=== PATIENT | male | born 1935 | race Caucasian/White ===

== ENCOUNTER 2016-05-23 10:20 | Inpatient (IN) | payer MEDICARE, OTHER ==
[2016-05-23] VITALS (9 sets, daily range): BP systolic 137–178; BP diastolic 72–86; PULSE 68–82; RESP 14–20; TEMP 97.3–97.7; O2SAT 88–100
[~2016-05-23] VITALS: Ht 177.8 cm; Wt 98.5 kg
[2016-05-23] MEDS: BUDESONIDE-FORMOTEROL 160/4.5 MCG INHALER INH SCH ×2 (03:20→20:29)
[~2016-05-23 10:20] MED LIST: ACET325 PO; ASPI81TA82 PO; ATOR40TA PO; CITA20TA4 PO; COUM4TAB7 PO; COUM6TAB PO; DOCU1CAP39 PO; GLUCTAB OR; METO50TA OR; NITR.4 SL; OMEP20TA OR; SYMB80AE INH; TEMA15 PO; TRAZ50TA4 PO; VITA100020 PO; VITD400 PO
[2016-05-23] MEDS ORDERED: METF500T PO (11:07)
[2016-05-23] MEDS ORDERED: METO50TA PO (11:10)
[2016-05-23] MEDS ORDERED: ATOR40TA16 PO (11:10)
[2016-05-23] MEDS ORDERED: CITA40TA4 PO (11:10)
[2016-05-23] MEDS ORDERED: ASPI81CH CHEW (11:11)
[2016-05-23] MEDS ORDERED: OMEP20TA PO (11:11)
[2016-05-23] MEDS ORDERED: VITA10003 PO (11:12)
[2016-05-23] MEDS ORDERED: VITA10002 PO (11:13)
[2016-05-23] MEDS ORDERED: SYMB160A INH ×2 (11:14→11:18)
[2016-05-23] MEDS ORDERED: TRAM50TA PO (11:15)
[2016-05-23] MEDS ORDERED: DULC100C PO (11:15)
[2016-05-23] MEDS ORDERED: FURO20TA PO (11:16)
--- NOTE | 2016-05-23 11:16 | PD ---
HPI Chief Complaint: Chest Pain Time Seen by Provider: 11:00 Travel History International Travel<30 days: No Contact w/Intl Traveler<30days: No Traveled to known affect area: No History of Present Illness HPI 80-year-old male complains of chest pain. Patient states that the pain started this morning after he ate breakfast. Patient states the pain is aching pain localized to the right chest. Patient denies any pain radiation. Patient states the pain is worse with deep breathing and movement. Patient has history of COPD and has a chronic cough and this was not new. Patient denies any fever chills. Patient denies any shortness of breath. Patient has history of atrial fibrillation, CAD status post CABG and stent placement. Patient has history hypertension, diabetes, dyslipidemia. Patient is a nonsmoker. Patient was on Coumadin in the past however Coumadin was stopped secondary to intracranial hemorrhage. Patient on aspirin 81 mg daily now. Patient states that the right-sided chest pain was persistent for 2 hours and became intermittent now. On a scale of 1-10 the pain is a 4. I spoke with Dr. 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 PFSH Past Medical History Arthritis: Yes Blood Disorders: No Cancer: Yes (prostate) Cardiac Catheterization: Yes Cardiovascular Problems: Yes High Cholesterol: Yes COPD: Yes Coronary Artery Disease: Yes Diabetes: Yes (II) Patient Takes Glucophage: No Diminished Hearing: No Endocrine: No Gastrointestinal Disorders: Yes GERD: Yes Genitourinary: No Hiatal Hernia: Yes Herniated Disk: Yes (degenerative disc disease lower back) Hypertension: Yes Immune Disorder: No Musculoskeletal: Yes Neurologic: Yes Psychiatric: No Reproductive: No Respiratory: Yes (COPD) Myocardial Infarction: Yes Radiation Therapy: Yes (2004 FOR PROSTATE) Tetanus Vaccination: < 5 Years Past Surgical History Abdominal Surgery: Yes (LAPAROSCOPIC APPENDECTOMY) Cardiac Surgery: Yes (angioplasty) Coronary Artery Bypass Graft: Yes Oral Surgery: Yes (TONSILS) Social History Alcohol Use: No Tobacco Use: No Substance Use: No Allergies-Medications (Allergen,Severity, Reaction): Coded Allergies: No Known Allergies (Verified , 03/05/14) Reported Meds & Prescriptions Reported Meds & Active Scripts Active Reported Albuterol Neb (Albuterol Sulfate) 2.5 Mg/3 Ml Neb 2.5 Mg NEB Q4HR NEB PRN Furosemide 20 Mg Tab 20 Mg PO BID Dulcolax Stool Softener (Docusate Sodium) 100 Mg Cap 100 Mg PO BID Tramadol (Tramadol HCl) 50 Mg Tab 50 Mg PO Q4H PRN Symbicort Inh (Budesonide/Formoterol Fumarate) 160-4.5 Mcg/Act Aero 1 Puff INH Q12HR Vitamin B-12 (Cyanocobalamin) 1,000 Mcg Tab 1,000 Mcg PO DAILY Vitamin D-3 (Cholecalciferol) 1,000 Unit Tab 1,000 Units PO DAILY Omeprazole 20 Mg Tab 20 Mg PO DAILY Aspirin 81 Mg Chew 81 Mg CHEW DAILY Atorvastatin (Atorvastatin Calcium) 40 Mg Tab 40 Mg PO HS Citalopram (Citalopram Hydrobromide) 40 Mg Tab 40 Mg PO DAILY Metoprolol Tartrate 50 Mg Tab 50 Mg PO BID Metformin (Metformin HCl) 500 Mg Tab 500 Mg PO BIDPC With meals Review of Systems General / Constitutional: No: Fever Eyes: No: Visual changes HENT: No: Headaches Cardiovascular: Positive: Chest Pain or Discomfort Respiratory: No: Shortness of Breath Gastrointestinal: No: Abdominal Pain Genitourinary: No: Dysuria Musculoskeletal: No: Pain Skin: No Rash Neurologic: No: Weakness Psychiatric: No: Depression Endocrine: No: Polydipsia Hematologic/Lymphatic: No: Easy Bruising Physical Exam Narrative GENERAL: Well-nourished, well-developed patient. SKIN: Focused skin assessment warm/dry. HEAD: Normocephalic. EYES: No scleral icterus. No injection or drainage. NECK: Supple, trachea midline. No JVD or lymphadenopathy. CARDIOVASCULAR: Regular rate and rhythm without murmurs, gallops, or rubs. RESPIRATORY: Breath sounds equal bilaterally. No accessory muscle use. GASTROINTESTINAL: Abdomen soft, non-tender, nondistended. MUSCULOSKELETAL: No cyanosis, or edema. BACK: Nontender without obvious deformity. No CVA tenderness. Neurologic exam normal. Data Data Last Documented VS Vital Signs Date Time Temp Pulse Resp B/P Pulse Ox O2 Delivery O2 Flow Rate FiO2 05/23/16 13:28 68 14 163/86 96 Nasal Cannula 2 Orders Electrocardiogram (05/23/16 11:09) Complete Blood Count With Diff (05/23/16 11:09) Comprehensive Metabolic Panel (05/23/16 11:09) Creatine Kinase (Cpk) (05/23/16 11:09) Troponin I (05/23/16 11:09) B-Type Natriuretic Peptide (05/23/16 11:09) Prothrombin Time / Inr (Pt) (05/23/16 11:09) Act Partial Throm Time (Ptt) (05/23/16 11:09) Chest, Single Ap (05/23/16 11:09) Iv Access Insert/Monitor (05/23/16 11:09) Ecg Monitoring (05/23/16 11:09) Oximetry (05/23/16 11:09) Ct Pulmonary Angiogram (05/23/16 11:11) Iohexol 350 Inj (Omnipaque 350 Inj) (05/23/16 13:24) Admit To Inpatient (05/23/16 ) Vital Signs (Adult) Q4H (05/23/16 14:59) Activity Oob With Assistance (05/23/16 14:59) Hydraulic Billet Maker / Telemetry .CONTINUOUS (05/23/16 14:59) Diet Heart Healthy (05/23/16 Dinner) Sodium Chloride 0.9% Flush (Ns Flush) (05/23/16 15:00) Sodium Chloride 0.9% Flush (Ns Flush) (05/23/16 21:00) Acetaminophen (Tylenol) (05/23/16 15:00) Ondansetron Inj (Zofran Inj) (05/23/16 15:00) Magnesium Hydroxide Liq (Milk Of Magnesi (05/23/16 15:00) Basic Metabolic Panel (Bmp) (05/24/16 06:00) Complete Blood Count With Diff (05/24/16 06:00) Troponin I (05/23/16 14:59) Labs Laboratory Tests Test 05/23/16 11:00 White Blood Count 9.0 TH/MM3 Red Blood Count 4.22 MIL/MM3 Hemoglobin 13.4 GM/DL Hematocrit 38.5 % Mean Corpuscular Volume 91.4 FL Mean Corpuscular Hemoglobin 31.7 PG Mean Corpuscular Hemoglobin 34.7 % Concent Red Cell Distribution Width 15.5 % Platelet Count 124 TH/MM3 Mean Platelet Volume 9.3 FL Neutrophils (%) (Auto) 77.6 % Lymphocytes (%) (Auto) 11.2 % Monocytes (%) (Auto) 5.9 % Eosinophils (%) (Auto) 4.8 % Basophils (%) (Auto) 0.5 % Neutrophils # (Auto) 7.0 TH/MM3 Lymphocytes # (Auto) 1.0 TH/MM3 Monocytes # (Auto) 0.5 TH/MM3 Eosinophils # (Auto) 0.4 TH/MM3 Basophils # (Auto) 0.0 TH/MM3 CBC Comment DIFF FINAL Differential Comment Prothrombin Time 11.4 SEC Prothromb Time International 1.0 RATIO Ratio Activated Partial 26.1 SEC Thromboplast Time Sodium Level 140 MEQ/L Potassium Level 4.3 MEQ/L Chloride Level 105 MEQ/L Carbon Dioxide Level 29.1 MEQ/L Anion Gap 6 MEQ/L Blood Urea Nitrogen 23 MG/DL Creatinine 1.60 MG/DL Estimat Glomerular Filtration 42 ML/MIN Rate Random Glucose 211 MG/DL Calcium Level 8.6 MG/DL Total Bilirubin 0.3 MG/DL Aspartate Amino Transf 17 U/L (AST/SGOT) Alanine Aminotransferase 20 U/L (ALT/SGPT) Alkaline Phosphatase 56 U/L Total Creatine Kinase 74 U/L Troponin I LESS THAN 0.02 NG/ML B-Type Natriuretic Peptide 56 PG/ML Total Protein 6.6 GM/DL Albumin 3.1 GM/DL MDM Medical Decision Making Medical Screen Exam Complete: Yes Emergency Medical Condition: Yes Interpretation(s) 1300 p.m. Last Impressions Chest X-Ray 05/23/16 1109 Signed Impressions: Service Date/Time: Monday, May 23, 2016 11:13 - CONCLUSION: No acute disease. Gil Kaur MD 1301 p.m. CBC within normal limit. Platelet 124. BUN 23. Creatinine 1.60. Cardiac enzymes are normal. BNP 56. 1345 PM. Last Impressions Chest X-Ray 05/23/16 1109 Signed Impressions: Service Date/Time: Monday, May 23, 2016 11:13 - CONCLUSION: No acute disease. Gil Kaur MD Differential Diagnosis Differential diagnosis including musculoskeletal, angina, OK, PE, pneumothorax. Narrative Course 80-year-old male with right-sided chest pain. History of CAD status post CABG. History of COPD and atrial fibrillation. Patient will be admitted to medical service with consultation to neurosurgeon and hematology oncologist regarding anticoagulation. Diagnosis Primary Impression: Pulmonary emboli Qualified Code: I26.99 - Other acute pulmonary embolism without acute cor pulmonale Admitting Information Admitting Physician Requests: Admit Ryan Todd MD May 23, 2016 11:16
[2016-05-23] MEDS ORDERED: ALBU0.08 NEB (11:20)
--- NOTE | 2016-05-23 11:27 | RADRPT ---
EXAM DATE/TIME: 05/23/2016 11:13 [facility] COMPARISON: No previous studies available for comparison. INDICATIONS : Chest pain and short of breath. MEDICAL HISTORY : Chronic obstructive pulmonary disease. SURGICAL HISTORY : CABG. ENCOUNTER: Initial ACUITY: 1 day PAIN SCORE: 7/10 LOCATION: Right chest FINDINGS: Cardiomegaly and median sternotomy wires are noted. No consolidation or effusion. EKG leads overlie t he chest. CONCLUSION: No acute disease. Gil Kaur MD on May 23, 2016 at 11:25 Board Certified Radiologist. This report was verified electronically.
[2016-05-23 11:35] LABS: BASOPHIL % 0.5 % (0.0-2.0); EOSINOPHIL # 0.4 TH/MM3 (0-0.4); EOSINOPHIL % 4.8 % (0.0-4.0); HEMATOCRIT 38.5 % (39.0-51.0); HEMO FLAGS DIFF FINAL; LYMPH % 11.2 % (9.0-44.0); MEAN CELL VOLUME 91.4 FL (80.0-100.0); MEAN CORPUSCULAR HEMOGLOBIN 31.7 PG (27.0-34.0); MEAN CORPUSCULAR HGB CONC 34.7 % (32.0-36.0); MONO % 5.9 % (0.0-8.0); NEUT % 77.6 % (16.0-70.0); PLATELET COUNT 124 TH/MM3 (150-450); RED BLOOD COUNT 4.22 MIL/MM3 (4.50-5.90); RED CELL DISTRIBUTION WIDTH 15.5 % (11.6-17.2)
[2016-05-23 11:42] LABS: APTT (PATIENT) 26.1 SEC (24.3-30.1); PROTHROMBIN TIME - PATIENT 11.4 SEC (9.8-11.6)
[2016-05-23 12:06] LABS: ALKALINE PHOSPHATASE 56 U/L (45-117); ALT (GPT) 20 U/L (12-78); ANION GAP 6 MEQ/L (5-15); AST (GOT) 17 U/L (15-37); BICARBONATE 29.1 MEQ/L (21.0-32.0); BLOOD UREA NITROGEN 23 MG/DL (7-18); CHLORIDE 105 MEQ/L (98-107); GLOMERULAR FILTRATION RATE 42 ML/MIN (>89); POTASSIUM 4.3 MEQ/L (3.5-5.1); SODIUM (NA) 140 MEQ/L (136-145); TOTAL BILIRUBIN ADULT 0.3 MG/DL (0.2-1.0)
[2016-05-23 12:07] LABS: CREATINE KINASE 74 U/L (39-308)
[2016-05-23] MEDS ORDERED: IOHEXOL 350 MG/ML 10 ML VIAL (for RAD DIAG) IV ONE (13:24)
--- NOTE | 2016-05-23 13:41 | RADRPT ---
EXAM DATE/TIME: 05/23/2016 13:04 [facility] COMPARISON: CHEST SINGLE AP, May 23, 2016, 11:13. INDICATIONS : Right chest pain. IV CONTRAST: 55 cc Omnipaque 350 (iohexol) IV RADIATION DOSE: 21.59 CTDIvol (mGy) MEDICAL HISTORY : Cardiovascular disease. Diabetes mellitus type 2. Carcinoma, prostate.Hypertension. SURGICAL HISTORY : Appendectomy. CABG ENCOUNTER: Initial ACUITY: 1 day PAIN SCALE: 7/10 LOCATION: Right chest TECHNIQUE: Volumetric scanning of the chest was performed using a pulmonary embolism protocol MIP images were re constructed. Using automated exposure control and adjustment of the mA and/or kV according to patien t size, radiation dose was kept as low as reasonably achievable to obtain optimal diagnostic quality images. FINDINGS: There are dependent atelectatic changes, mild subpleural interstitial prominence bilaterally and mild patchy basilar airspace disease left greater than right. There are filling defects within the left u pper lobe pulmonary artery, right lower lobe pulmonary arteries, right main right artery and upper lo be branches. CONCLUSION: 1. Bilateral pulmonary emboli are noted. 2. Atelectasis, interstitial lung disease and patchy airspace disease at the bases. 3. Mild dilatation of the ascending aorta up to 4.2 cm. Gil Kaur MD on May 23, 2016 at 13:38 Board Certified Radiologist. This report was verified electronically.
[2016-05-23] MEDS ORDERED: ACETAMINOPHEN 325 MG TAB PO PRN ×2 (15:00→16:30)
[2016-05-23] MEDS ORDERED: NALOXONE HCL 0.4 MG/ML AMP IV PRN ×2 (15:00→16:30)
[2016-05-23] MEDS ORDERED: ONDANSETRON HCL 4 MG/2 ML VIAL IVP PRN (15:00)
[2016-05-23] MEDS ORDERED: SODIUM CHLORIDE 0.9% FLUSH 10 ML FLUSH IV FLUSH PRN ×2 (15:00→16:30)
[2016-05-23] MEDS ORDERED: MAGNESIUM HYDROXIDE SUSP 30 ML CUP PO PRN (15:00)
--- NOTE | 2016-05-23 15:56 | RADRPT ---
EXAM DATE/TIME: 05/23/2016 15:33 [facility] COMPARISON: No previous studies available for comparison. INDICATIONS : Evaluate for hemorrhage. RADIATION DOSE: 35.65 CTDIvol (mGy) MEDICAL HISTORY : Cardiovascular disease. Carcinoma, prostate. Hypertension. SURGICAL HISTORY : CABG ENCOUNTER: Initial ACUITY: 1 day PAIN SCALE: 0/10 LOCATION: Bilateral head TECHNIQUE: Multiple contiguous axial images were obtained of the head. Using automated exposure control and adj ustment of the mA and/or kV according to patient size, radiation dose was kept as low as reasonably a chievable to obtain optimal diagnostic quality images. FINDINGS: There is diffuse atrophy greatest in the bilateral frontal regions. Remote basal ganglia infarcts are identified. No signs of acute infarct or mass. There is a subtle mildly hyperdense subdural hemorrha ge along the left parietal and frontal convexity with a maximal transverse width of 8 mm. No underlyi ng mass effect is seen. No fractures are seen. CONCLUSION: 1. Small left subdural hemorrhage. 2. Atrophy and remote lacunar infarcts. Gil Kaur MD on May 23, 2016 at 15:53 Board Certified Radiologist. This report was verified electronically.
[2016-05-23] MEDS ORDERED: MORPHINE SULFATE 4 MG/ML INJ IV PUSH ONE (16:15)
[2016-05-23] MEDS ORDERED: SODIUM CHLOR 0.9% 1000 ML INJ 1,000 ML IV SCH (16:20)
[2016-05-23] MEDS ORDERED: ACETAMINOPHEN/HYDROcodone 325 MG/5 MG TAB PO PRN (16:30)
[2016-05-23] MEDS ORDERED: GLUCAGON 1 MG/ML VIAL OTHER PRN (16:30)
[2016-05-23] MEDS ORDERED: RESP: ALBUTEROL 2.5 MG/3 ML NEB (PRN) NEB (16:30)
[2016-05-23] MEDS ORDERED: MORPHINE SULFATE 4 MG/ML INJ IV PRN (16:30)
[2016-05-23] MEDS ORDERED: DEXTROSE 50% IN WATER 50 ML VIAL(D50) IV PUSH PRN (16:30)
[2016-05-23] MEDS: ACETAMINOPHEN/HYDROcodone 325 MG/7.5 MG TAB PO PRN ×2 (16:45→20:35)
--- NOTE | 2016-05-23 16:54 | HHI.HP ---
HPI [facility] Primary Care Physician Alexis Verma MD Admission Diagnosis bilateral pulmonary emboli Diagnoses: Chief Complaint: Chest pain Travel History International Travel<30 Days: No Contact w/Intl Traveler <30 Da: No Traveled to Known Affected Are: No History of Present Illness Mr. Lamar is an 80-year-old male with a known history of CAD with history of CABG with triple bypass, atrial fibrillation, COPD, DM, HTN, hypercholesteremia , prostate cancer with radiation, GERD, degenerative disc disease and arthritis. Patient presented to the ED with complaints of severe nonradiating sharp anterior right chest pain that began at 0900 this am, associated with perspiration, shortness of breath and worse with breathing. Denies any associated symptoms of nausea or vomiting. Per patient report, he has fallen multiple times with history of hemorrhagic bleed in March or April of this year after a fall. He was on Coumadin at that time but was taken off. Denies any recent fever or chills. Denies any recent surgeries. He did fly from [place] two weeks ago, otherwise denies any recent travel. Review of Systems Constitutional: COMPLAINS OF: Diaphoretic episodes Cardiovascular: COMPLAINS OF: Chest pain, Dyspnea on Exertion, Lower Extremity Edema Except as stated in HPI: all other systems reviewed are Neg Past Family Social History Past Medical History CAD with history of CABG with triple bypass Atrial fibrillation COPD DM HTN Hypercholesteremia Prostate cancer with radiation GERD Degenerative disc disease Arthritis. Past Surgical History CABG with triple bypass Appendectomy Tonsillectomy Reported Medications Reported Meds & Active Scripts Albuterol Neb (Albuterol Sulfate) 2.5 Mg/3 Ml Neb 2.5 Mg NEB Q4HR NEB PRN Furosemide 20 Mg Tab 20 Mg PO BID Dulcolax Stool Softener (Docusate Sodium) 100 Mg Cap 100 Mg PO BID Tramadol (Tramadol HCl) 50 Mg Tab 50 Mg PO Q4H PRN Symbicort Inh (Budesonide/Formoterol Fumarate) 160-4.5 Mcg/Act Aero 1 Puff INH Q12HR Vitamin B-12 (Cyanocobalamin) 1,000 Mcg Tab 1,000 Mcg PO DAILY Vitamin D-3 (Cholecalciferol) 1,000 Unit Tab 1,000 Units PO DAILY Omeprazole 20 Mg Tab 20 Mg PO DAILY Aspirin 81 Mg Chew 81 Mg CHEW DAILY Atorvastatin (Atorvastatin Calcium) 40 Mg Tab 40 Mg PO HS Citalopram (Citalopram Hydrobromide) 40 Mg Tab 40 Mg PO DAILY Metoprolol Tartrate 50 Mg Tab 50 Mg PO BID Metformin (Metformin HCl) 500 Mg Tab 500 Mg PO BIDPC With meals Allergies: Coded Allergies: No Known Allergies (Verified , 03/05/14) Active Ordered Medications Current Medications Medications (Trade) Dose Ordered Sig/Uriel Route Start Time Stop Time Status Last Admin (NS Flush) 2 ml UNSCH PRN IV FLUSH 05/23/16 15:00 (NS Flush) 2 ml BID IV FLUSH 05/23/16 21:00 (Tylenol) 650 mg Q4H PRN PO 05/23/16 15:00 (Zofran Inj) 4 mg Q6H PRN IVP 05/23/16 15:00 (Milk Of Magnesia Liq) 30 ml Q12H PRN PO 05/23/16 15:00 (Narcan Inj) 0.4 mg UNSCH PRN IV 05/23/16 15:00 (D50w (Vial) Inj) 25 ml UNSCH PRN IV PUSH 05/23/16 16:30 (Glucagon Inj) 1 mg UNSCH PRN OTHER 05/23/16 16:30 (Lipitor) 40 mg HS PO 05/23/16 21:00 (Symbicort 160-4.5 Inh) 1 puff Q12HR INH 05/23/16 21:00 (CeleXA) 40 mg DAILY PO 05/24/16 09:00 (Colace) 100 mg BID PO 05/23/16 21:00 (Lopressor) 50 mg BID PO 05/23/16 21:00 (Protonix) 20 mg DAILY PO 05/24/16 09:00 Family History Denies any family history of dementia. Reports an aunt who had cancer. Social History Denies any alcohol or tobacco use. Recently at SNF for rehab, currently lives at home with . Physical Exam Vital Signs Vital Signs Date Time Temp Pulse Resp B/P Pulse Ox O2 Delivery O2 Flow Rate FiO2 05/23/16 15:59 70 18 164/84 100 Nasal Cannula 2 05/23/16 13:28 68 14 163/86 96 Nasal Cannula 2 05/23/16 12:33 70 18 178/85 98 Nasal Cannula 2 05/23/16 10:27 71 18 98 Nasal Cannula 2 05/23/16 10:22 82 16 137/73 88 Physical Exam GENERAL: Well-developed well-nourished. In mild distress secondary to painful breathing. SKIN: Warm and dry. No lesions noted. HEENT: Normocephalic. Pupils equal and round. Mucous membranes pink and moist. CARDIOVASCULAR: Regular rate and rhythm. No murmur appreciated. RESPIRATORY: No accessory muscle use. Clear to auscultation. Breath sounds equal bilaterally. GASTROINTESTINAL: Abdomen soft, non-tender, nondistended. Bowel sounds x4. MUSCULOSKELETAL: No obvious deformities. No clubbing or cyanosis. No edema. No calf swelling or TTP. NEUROLOGICAL: Awake and alert. No focal neurological deficits. Moves upper and lower extremities spontaneously. Normal speech. PSYCHIATRIC: Appropriate mood and affect; insight and judgment normal. Laboratory Laboratory Tests Test 05/23/16 11:00 White Blood Count 9.0 Red Blood Count 4.22 Hemoglobin 13.4 Hematocrit 38.5 Mean Corpuscular Volume 91.4 Mean Corpuscular Hemoglobin 31.7 Mean Corpuscular Hemoglobin 34.7 Concent Red Cell Distribution Width 15.5 Platelet Count 124 Mean Platelet Volume 9.3 Neutrophils (%) (Auto) 77.6 Lymphocytes (%) (Auto) 11.2 Monocytes (%) (Auto) 5.9 Eosinophils (%) (Auto) 4.8 Basophils (%) (Auto) 0.5 Neutrophils # (Auto) 7.0 Lymphocytes # (Auto) 1.0 Monocytes # (Auto) 0.5 Eosinophils # (Auto) 0.4 Basophils # (Auto) 0.0 CBC Comment DIFF FINAL Differential Comment Prothrombin Time 11.4 Prothromb Time International 1.0 Ratio Activated Partial 26.1 Thromboplast Time Sodium Level 140 Potassium Level 4.3 Chloride Level 105 Carbon Dioxide Level 29.1 Anion Gap 6 Blood Urea Nitrogen 23 Creatinine 1.60 Estimat Glomerular Filtration 42 Rate Random Glucose 211 Calcium Level 8.6 Total Bilirubin 0.3 Aspartate Amino Transf 17 (AST/SGOT) Alanine Aminotransferase 20 (ALT/SGPT) Alkaline Phosphatase 56 Total Creatine Kinase 74 Troponin I LESS THAN 0.02 B-Type Natriuretic Peptide 56 Total Protein 6.6 Albumin 3.1 Result Diagram: 05/23/16 1100 05/23/16 1100 Imaging Last Impressions Head CT 05/23/16 1519 Signed Impressions: Service Date/Time: Monday, May 23, 2016 15:33 - CONCLUSION: 1. Small left subdural hemorrhage. 2. Atrophy and remote lacunar infarcts. Gil Kaur MD CT Angiography 05/23/16 1111 Signed Impressions: Service Date/Time: Monday, May 23, 2016 13:04 - CONCLUSION: 1. Bilateral pulmonary emboli are noted. 2. Atelectasis, interstitial lung disease and patchy airspace disease at the bases. 3. Mild dilatation of the ascending aorta up to 4.2 cm. Gil Kaur MD Chest X-Ray 05/23/16 1109 Signed Impressions: Service Date/Time: Monday, May 23, 2016 11:13 - CONCLUSION: No acute disease. Gil Kaur MD Assessment and Plan Problem List: (1) Pulmonary embolism ICD Code: I26.99 Status: Acute (2) Atrial fibrillation ICD Code: I48.91 Status: Acute (3) History of subdural hematoma ICD Code: Z86.79 Status: Acute (4) DM (diabetes mellitus) ICD Code: E11.9 Status: Acute (5) HTN (hypertension) ICD Code: I10 Status: Acute Assessment and Plan Mr. Lamar is an 80-year-old with a history of CAD with history of CABG with triple bypass, atrial fibrillation, COPD, DM, HTN, hypercholesteremia, prostate cancer with radiation, GERD, degenerative disc disease and arthritis who presents with sharp nonradiating right anterior chest pain. Bilateral PE: CT angiography results reviewed, bilateral pulmonary emboli are noted. Atelectasis, interstitial lung disease and patchy airspace disease at the bases. Mild dilation of the ascending aorta up to 4.2cm. Hematology consulted, appreciate input regarding anticoagulation with associated subdural hemorrhage. Consider IVCF. IV morphine x 1. Pain control with oral [place] as needed, with IV Morphine for breakthrough. - SDH occurred in January 2016. - Based on literature review (uptodate), restarting anti-coagulation 7 to 14 days after ICH appears to be reasonable. - Newer agents (Dabigatran, Rivaroxaban, apixaban) would be preferable due to lower risk of ICH. - Discussed with neurosurgery and hematology, appreciate input. Specialists ok with cautious anticoagulation. - IR consult for IVC filter placement. - Will start heparin drip without bolus. - If okay with hematology, will consider transitioning to Apixaban (no bridging required) or Dabigatran Subdural hemorrhage: CT head results reviewed, small left subdural hemorrhage noted. Atrophy and remote lacunar infarcts. Neurosurgery consulted. I also reviewed reports of previous CT head done at [place], [place]. CT head reports from February 2016 indicates stable SDH. Although we cannot compare images, CT head done on 05/23/2016 likely indicates residual old SDH and not a new SDH. Hypertension - start Amlodipine 5mg Qday. Good control of BP would be extremely important in this patient given his history of SDH. CAD: With chest pain above, likely related to PE. Rule out ACS per protocol, trend cardiac enzymes. Continue metoprolol and statin. Atrial fibrillation - [id number] score likely greater than 4 (age, HTN, DM). HAS-BLED score is 2. - This would be another indication to start anti-coagulation and benefit outweigh the risk of anticoagulation. PEDRITO: Creatinine 1.60, prev 1.17 on 03/05/14. Appears euvolemic. Hold home Lasix. IVF x 1L. Follow up BMP. DM: Start on NovoLog sliding scale. Hold metformin for now. Monitor Accu-Cheks. Other chronic medical issues include GERD, COPD, depression: Stable at this time and will continue home medications as indicated. Full code. Heparin gtt. Written by Aaron Louis, acting as scribe for Dr. Velazquez on 05/23/16 at 16:38. All or portions of this note were transcribed by CIERA Randolph. I, Dr. Johnathan Velazquez personally performed the history, physical exam, and medical decision making; and confirmed the accuracy of the information in the transcribed note. Authenticated by Dr. Johnathan Velazquez on 05/23/16 at 23:17. Discussed Condition With Patient Aaron Louis May 23, 2016 16:54 Quincy Velazquez DO May 23, 2016 23:26
[2016-05-23] MEDS: HEPARIN-D5W INJ 250 ML IV SCH (18:22)
[2016-05-23 18:46] LABS: HEMATOCRIT 41.6 % (39.0-51.0); MEAN CELL VOLUME 92.8 FL (80.0-100.0); MEAN CORPUSCULAR HEMOGLOBIN 30.5 PG (27.0-34.0); MEAN CORPUSCULAR HGB CONC 32.9 % (32.0-36.0); PLATELET COUNT 130 TH/MM3 (150-450); RED BLOOD COUNT 4.49 MIL/MM3 (4.50-5.90); RED CELL DISTRIBUTION WIDTH 15.5 % (11.6-17.2); REVIEW FLAG FINAL; WHITE BLOOD COUNT 10.1 TH/MM3 (4.0-11.0)
[2016-05-23 18:57] LABS: APTT (PATIENT) 25.9 SEC (24.3-30.1); PROTHROMBIN TIME - PATIENT 11.4 SEC (9.8-11.6)
[2016-05-23] MEDS: DOCUSATE SODIUM 100 MG CAP PO SCH (20:29)
[2016-05-23] MEDS: ATORVASTATIN 40 MG TAB PO SCH (20:29)
[2016-05-23] MEDS: METOPROLOL TARTRATE 50 MG TAB PO SCH (20:29)
[2016-05-23] MEDS: SODIUM CHLORIDE 0.9% FLUSH 10 ML FLUSH IV FLUSH SCH (20:30)
[2016-05-23] MEDS: INSULIN ASPART SUPPLEMENTAL SCALE SQ SCH (20:42)
[2016-05-23] MEDS ORDERED: SODIUM CHLORIDE 0.9% FLUSH 10 ML FLUSH IV FLUSH SCH (21:00)
--- NOTE | 2016-05-23 23:06 | RADRPT ---
EXAM DATE/TIME: 05/23/2016 22:05 [facility] COMPARISON: No previous studies available for comparison. INDICATIONS : Bilateral leg pain. Pulmonary emboli MEDICAL HISTORY : Myocardial infarction. Hypercholesterolemia. Gastroesophageal reflux disease. CAD. Hiatal hernia. Art hritis. Prostate cancer. Degenerative disk disease. Radiation therapy. SURGICAL HISTORY : CABGAppendectomy. Oral surgery. ENCOUNTER: Initial ACUITY: 1 day PAIN SCORE: 3/10 LOCATION: Bilateral legs. TECHNIQUE: Venous ultrasound of the left and right leg was performed from the inguinal ligament to the proximal calf. Real-time, color Doppler and spectral tracing, compression and augmentation techniques were us ed. FINDINGS: RIGHT LEG: There is normal compressibility of the deep venous system from the inguinal region to the proximal ca lf. No echogenic clot is seen in the lumen of the common femoral, femoral, popliteal, and posterior tibial veins. There is a normal response of the venous system to proximal and distal augmentation an d respiration. LEFT LEG: There is normal compressibility of the deep venous system from the inguinal region to the proximal ca lf. No echogenic clot is seen in the lumen of the common femoral, femoral, popliteal, and posterior tibial veins. There is a normal response of the venous system to proximal and distal augmentation an d respiration. CONCLUSION: No DVT in either lower extremity. John Wagner MD on May 23, 2016 at 23:03 Board Certified Radiologist. This report was verified electronically.
--- NOTE | 2016-05-23 23:49 | MB ---
cc: ALESSANDRA GUERIN M.D. DATE OF CONSULTATION 05/23/16 REASON FOR CONSULTATION Consult requested by [facility] for evaluation of a pulmonary embolism in a patient who has a history of subdural hematoma in January of 2016. HISTORY OF PRESENT ILLNESS This 80-year-old very pleasant white male. He is under the care of Dr. Verma, his primary physician, Dr. Duarte, his neurologist and Dr. Diaz, his fixing carpenter. He has multiple medical problems. He went to [place] to attend a family gathering. On the 30 of December the patient's stated that he fell over there. At that time he did not have any evidence of injuries or change in mental status. Maybe a month later he was admitted to [facility] for change in mental status. The patient had further workup and he was found to have subdural hematoma. However, his mental status improved and conservative management was recommended. He was evaluated by neurosurgeon and according to the they did not recommended any surgery. At that time the patient was on Coumadin for atrial fibrillation. The Coumadin was reversed and discontinued, he was discharged on aspirin. The patient went to rehab in [place] and he stayed there for two and a half months. He finally improved to the point that he could travel back to [place] about 2 weeks ago. The patient came into the emergency room after he was complaining of pleuritic chest pain and shortness of breath. In the emergency room he was evaluated by Dr. Todd. A CT angiogram was ordered which showed bilateral pulmonary embolism. The patient is admitted to the [facility] service. Neurosurgery, Dr. Angela, was consulted. He recommended to obtain a CT of the head which shows small left subdural hemorrhage. There was atrophy and remote lacunar infarcts noted. Dr. Angela recommended it is okay to start him on anticoagulation with a close monitoring. The patient was started on heparin. I have been asked to see the patient for further evaluation. REVIEW OF SYSTEMS The patient's breathing has somewhat improve according to his . He still has pleuritic chest pains, especially on the left side. He denies any nausea or vomiting. His appetite is okay. He does not have any swelling in both lower legs. The rest of the review of systems is negative. PAST MEDICAL HISTORY Hypertension, hypercholesterolemia, diabetes, COPD, multiple TIAs, chronic atrial fibrillation, coronary artery disease status post MT, history of prostate cancer status post radiation therapy. PAST SURGICAL HISTORY The past surgical history of coronary artery bypass surgery, cardiac stent placement, appendectomy, prostate biopsy and back surgery. ALLERGIES None. MEDICATIONS Please see EMR. FAMILY HISTORY There is no family history of thromboembolic disease. SOCIAL HISTORY The patient does not smoke cigarettes, does not drink alcohol. PHYSICAL EXAMINATION GENERAL: This is a well-developed elderly white male in no apparent distress. VITAL SIGNS: Temperature 97.7, heart rate is 70, blood pressure 166/78. HEENT: PERRLA, EOMI, anicteric. No oral lesions are noted. Neck is supple. LYMPH NODE SURVEY: There is no cervical, supraclavicular or axillary lymphadenopathy noted. LUNGS: Lungs are clear. No wheezing, rhonchi or rales. HEART: Heart is irregularly irregular. ABDOMEN: Abdomen is soft, nontender. No hepatosplenomegaly. EXTREMITIES: No pedal edema. NEUROLOGY: Awake, alert, oriented times three. SKIN: No significant lesions noted. ASSESSMENT 1. Bilateral pulmonary embolism. 2. History of subdural hematoma in January of 2016 status post fall. 3. Chronic atrial fibrillation, was on Coumadin but he is now only on aspirin. PLAN I have reviewed his available records and I have discussed with the patient and his regarding the bilateral pulmonary embolism. It is unclear whether this is provoked or unprovoked pulmonary embolism. [facility] and was recently discharged about 2 weeks ago. He traveled from [place] to [place]. According to his he was ambulatory at home. Due to the extensive nature of the pulmonary embolism the patient needed to be on anticoagulant. CT of the brain showed small left subdural hemorrhage. Dr. Angela was consulted and he has no objection to the anticoagulation with close monitoring. Dr. Velazquez from [facility] had called me and discussed the case and I agree with starting him on heparin without the bolus dose. Interventional radiologist have been consulted for IVC filter to be placed tomorrow. I will get the Doppler ultrasound of both lower legs to make sure that he does not have DVT of lower legs. The patient will be monitored closely for any worsening of the subdural hematoma with the anticoagulation. Further recommendations based on his hospital stay. Thank you for asking my opinion. MD SHEREE Haney/KHUSHBU /8:18 PM /11:32 PM [facility] HOSPITALDarrion
[2016-05-24] VITALS (9 sets, daily range): BP systolic 147–167; BP diastolic 71–87; PULSE 68–85; RESP 18–20; TEMP 97–98.2; O2SAT 91–97
[2016-05-24 00:35] LABS: APTT (PATIENT) 69.9 SEC (24.3-30.1)
[2016-05-24] MEDS: ACETAMINOPHEN/HYDROcodone 325 MG/7.5 MG TAB PO PRN (03:38)
[2016-05-24] MEDS: INSULIN ASPART SUPPLEMENTAL SCALE SQ SCH ×4 (05:19→21:16)
[2016-05-24 08:52] LABS: BICARBONATE 29.3 MEQ/L (21.0-32.0)
[2016-05-24] MEDS ORDERED: amLODIPine BESYLATE 5 MG TAB PO SCH (09:00)
--- NOTE | 2016-05-24 09:08 | PD.CONS ---
HPI Consult Requested By Primary Care Physician Alexis Verma MD History of Present Illness Mr. Lamar is an 80-year-old male with a known history of CAD with history of CABG with triple bypass, atrial fibrillation, COPD, DM, HTN, hypercholesteremia , prostate cancer with radiation, GERD, degenerative disc disease and arthritis. Patient presented to the ED with complaints of severe nonradiating sharp anterior right chest pain that began at 0900 this am, associated with perspiration, shortness of breath and worse with breathing. Denies any associated symptoms of nausea or vomiting. Per patient report, he has fallen multiple times with history of hemorrhagic bleed in March or April of this year after a fall. He was on Coumadin at that time but was taken off. Denies any recent fever or chills. Denies any recent surgeries. He did fly from [place] two weeks ago, otherwise denies any recent travel. Past Family Social History Allergies: Coded Allergies: No Known Allergies (Verified , 03/05/14) Past Medical History CAD with history of CABG with triple bypass Atrial fibrillation COPD DM HTN Hypercholesteremia Prostate cancer with radiation GERD Degenerative disc disease Arthritis. Past Surgical History CABG with triple bypass Appendectomy Tonsillectomy Reported Medications Albuterol Neb (Albuterol Sulfate) 2.5 Mg/3 Ml Neb 2.5 Mg NEB Q4HR NEB PRN Furosemide 20 Mg Tab 20 Mg PO BID Dulcolax Stool Softener (Docusate Sodium) 100 Mg Cap 100 Mg PO BID Tramadol (Tramadol HCl) 50 Mg Tab 50 Mg PO Q4H PRN Symbicort Inh (Budesonide/Formoterol Fumarate) 160-4.5 Mcg/Act Aero 1 Puff INH Q12HR Vitamin B-12 (Cyanocobalamin) 1,000 Mcg Tab 1,000 Mcg PO DAILY Vitamin D-3 (Cholecalciferol) 1,000 Unit Tab 1,000 Units PO DAILY Omeprazole 20 Mg Tab 20 Mg PO DAILY Aspirin 81 Mg Chew 81 Mg CHEW DAILY Atorvastatin (Atorvastatin Calcium) 40 Mg Tab 40 Mg PO HS Citalopram (Citalopram Hydrobromide) 40 Mg Tab 40 Mg PO DAILY Metoprolol Tartrate 50 Mg Tab 50 Mg PO BID Metformin (Metformin HCl) 500 Mg Tab 500 Mg PO BIDPC With meals Active Ordered Medications Last Impressions Head CT 05/23/16 1519 Signed Impressions: Service Date/Time: Monday, May 23, 2016 15:33 - CONCLUSION: 1. Small left subdural hemorrhage. 2. Atrophy and remote lacunar infarcts. Gil Kaur MD CT Angiography 05/23/16 1111 Signed Impressions: Service Date/Time: Monday, May 23, 2016 13:04 - CONCLUSION: 1. Bilateral pulmonary emboli are noted. 2. Atelectasis, interstitial lung disease and patchy airspace disease at the bases. 3. Mild dilatation of the ascending aorta up to 4.2 cm. Gil Kaur MD Chest X-Ray 05/23/16 1109 Signed Impressions: Service Date/Time: Monday, May 23, 2016 11:13 - CONCLUSION: No acute disease. Gil Kaur MD Lower Extremity Ultrasound 05/23/16 0000 Signed Impressions: Service Date/Time: Monday, May 23, 2016 22:05 - CONCLUSION: No DVT in either lower extremity. John Wagner MD Family History Denies any family history of dementia. Social History Denies any alcohol or tobacco use. No alcohol abuse No illicit drug use Currently lives at home with . Physical Exam Vital Signs Vital Signs Date Time Temp Pulse Resp B/P Pulse Ox O2 Delivery O2 Flow Rate FiO2 05/24/16 08:00 97.7 68 18 147/87 97 05/24/16 05:20 94 Nasal Cannula 3.00 05/24/16 03:34 98.2 71 18 165/79 93 05/23/16 23:37 160/78 Automatic Cuff 05/23/16 23:14 97.4 75 18 164/83 93 05/23/16 20:18 73 05/23/16 20:08 97.3 76 18 147/72 97 05/23/16 17:00 97.7 70 20 166/78 97 05/23/16 15:59 70 18 164/84 100 Nasal Cannula 2 05/23/16 13:28 68 14 163/86 96 Nasal Cannula 2 05/23/16 12:33 70 18 178/85 98 Nasal Cannula 2 05/23/16 10:27 71 18 98 Nasal Cannula 2 05/23/16 10:22 82 16 137/73 88 Physical Exam Mr Lamar is alert, awake and oriented to time, place and person. Speech is fluent. Higher cognitive functions are normal. Cranial nerve examination demonstrates the pupils to be equal, round, and reactive to light. Extra-ocular movements are intact. Facial motor and sensory function are normal and symmetrical. Gross hearing is intact, bilaterally. The uvula is midline and elevates symmetrically with the soft palate. Sternocleidomastoid and trapezius muscles have normal and symmetrical strength. Other cranial nerves are intact. Neck is soft and supple. Cervical spine has a good range of motion in anterior flexion, extension, lateral bending, and rotation without pain. There is no tenderness to palpation to the spinous processes or paraspinal muscles. Muscle testing reveals normal bulk and tone overall without rigidity, spasticity , fasciculations, or atrophy. Muscle strength is 5/5 in all muscle groups of both upper extremities including deltoid, biceps, triceps, brachioradialis, wrist extension and day care teacher. In the lower extremities, strength is 5/5 in both iliopsoas, quadriceps, hamstrings, plantar flexion, dorsiflexion, and extensor hallicus longus. Sensory examination is intact to light touch and sharp/dull discrimination in both the upper and lower extremities, symmetrically. Deep tendon reflexes are 2+ and symmetrical in the biceps, triceps, and brachioradialis, bilaterally, in the upper extremities. In the lower extremities , the patellar and Achilles are 2+, bilaterally. There is a bilateral plantar flexion response. Hoffmanns sign is negative. There is no clonus or other abnormal reflexes noted. Cerebellar examination is intact to [id number] test, rapid rhythmic alternating motion. There is no dysmetria, dysdiadochokinesia, truncal ataxia, or tremor. Laboratory Laboratory Tests Test 05/23/16 05/23/16 05/23/16 05/24/16 11:00 15:55 18:26 00:05 White Blood Count 9.0 10.1 Red Blood Count 4.22 4.49 Hemoglobin 13.4 13.7 Hematocrit 38.5 41.6 Mean Corpuscular Volume 91.4 92.8 Mean Corpuscular Hemoglobin 31.7 30.5 Mean Corpuscular Hemoglobin 34.7 32.9 Concent Red Cell Distribution Width 15.5 15.5 Platelet Count 124 130 Mean Platelet Volume 9.3 8.8 Neutrophils (%) (Auto) 77.6 Lymphocytes (%) (Auto) 11.2 Monocytes (%) (Auto) 5.9 Eosinophils (%) (Auto) 4.8 Basophils (%) (Auto) 0.5 Neutrophils # (Auto) 7.0 Lymphocytes # (Auto) 1.0 Monocytes # (Auto) 0.5 Eosinophils # (Auto) 0.4 Basophils # (Auto) 0.0 CBC Comment DIFF FINAL Differential Comment Prothrombin Time 11.4 11.4 Prothromb Time International 1.0 1.0 Ratio Activated Partial 26.1 25.9 69.9 Thromboplast Time Sodium Level 140 Potassium Level 4.3 Chloride Level 105 Carbon Dioxide Level 29.1 Anion Gap 6 Blood Urea Nitrogen 23 Creatinine 1.60 Estimat Glomerular Filtration 42 Rate Random Glucose 211 Calcium Level 8.6 Total Bilirubin 0.3 Aspartate Amino Transf 17 (AST/SGOT) Alanine Aminotransferase 20 (ALT/SGPT) Alkaline Phosphatase 56 Total Creatine Kinase 74 Troponin I LESS THAN 0.02 LESS THAN 0.02 LESS THAN 0.02 B-Type Natriuretic Peptide 56 Total Protein 6.6 Albumin 3.1 Test 05/24/16 07:39 Sodium Level 141 Potassium Level 5.0 Chloride Level 104 Carbon Dioxide Level 29.3 Anion Gap 8 Blood Urea Nitrogen 19 Creatinine 1.26 Estimat Glomerular Filtration 55 Rate Random Glucose 116 Calcium Level 8.1 Result Diagram: 05/23/16 1826 05/24/16 0739 Imaging Last Impressions Head CT 05/23/16 1519 Signed Impressions: Service Date/Time: Monday, May 23, 2016 15:33 - CONCLUSION: 1. Small left subdural hemorrhage. 2. Atrophy and remote lacunar infarcts. Gil Kaur MD CT Angiography 05/23/16 1111 Signed Impressions: Service Date/Time: Monday, May 23, 2016 13:04 - CONCLUSION: 1. Bilateral pulmonary emboli are noted. 2. Atelectasis, interstitial lung disease and patchy airspace disease at the bases. 3. Mild dilatation of the ascending aorta up to 4.2 cm. Gil Kaur MD Chest X-Ray 05/23/16 1109 Signed Impressions: Service Date/Time: Monday, May 23, 2016 11:13 - CONCLUSION: No acute disease. Gil Kaur MD Lower Extremity Ultrasound 05/23/16 0000 Signed Impressions: Service Date/Time: Monday, May 23, 2016 22:05 - CONCLUSION: No DVT in either lower extremity. John Wagner MD Assessment and Plan Assessment and Plan Mr. Lamar is an 80-year-old with a history of CAD with history of CABG with triple bypass, atrial fibrillation, COPD, DM, HTN, hypercholesteremia, prostate cancer with radiation, GERD, degenerative disc disease and arthritis with Bilateral PE on CT angiography Problem List: (1) Pulmonary embolism ICD Code: I26.99 Status: Acute (2) Atrial fibrillation ICD Code: I48.91 Status: Acute (3) History of subdural hematoma ICD Code: Z86.79 Status: Acute (4) DM (diabetes mellitus) ICD Code: E11.9 Status: Acute (5) HTN (hypertension) ICD Code: I10 Status: Acute Attending Statement Subdural hemorrhage: CT head results reviewed, small left chronic subdural hemorrhage. Continue neuro checks in a serial fashion. Placement of ventriculostomy for ICP monitoring is not indicated. Please be very careful and judicious if would start anticoagulation due to the risk for bleeding. ANother alternative is a [place] filter Respiratory. pulmonary toilette, nasotracheal suction, and breathing treatments with nebulizers. Hypertension - start Amlodipine 5mg Qday for good control of BP CAD: chest pain likely related to PE. Rule out ACS per protocol, trend cardiac enzymes. Continue metoprolol Atrial fibrillation [id number] score likely greater than 4 (age, HTN, DM). HAS -BLED score is 2. PEDRITO: Creatinine 1.60, prev 1.17 on 03/05/14. Appears euvolemic. monitor closely urine output, BUN and creatinine PT and OT eval Nutrition. Oral diet Diabetes. Monitor serial Acu checks and SSI for tight control ID monitor for signs of infection Protonix for stress ulcer prophylaxis Michael hose and SCD's for DVT prophylaxis Lui Angela MD May 24, 2016 09:08
[2016-05-24] MEDS: PANTOPRAZOLE SOD 20 MG DELAYED RELEASE TAB PO SCH (09:22)
[2016-05-24] MEDS: DOCUSATE SODIUM 100 MG CAP PO SCH ×2 (09:22→21:06)
[2016-05-24] MEDS: METOPROLOL TARTRATE 50 MG TAB PO SCH ×2 (09:22→21:06)
[2016-05-24] MEDS: BUDESONIDE-FORMOTEROL 160/4.5 MCG INHALER INH SCH ×2 (09:22→21:08)
[2016-05-24] MEDS: CITALOPRAM HYDROBROMIDE 40 MG TAB PO SCH (09:23)
[2016-05-24] MEDS: SODIUM CHLORIDE 0.9% FLUSH 10 ML FLUSH IV FLUSH SCH ×2 (09:24→21:06)
[2016-05-24] MEDS ORDERED: RESP: ALBUTEROL 2.5 MG/IPRATROPIUM 0.5 MG NEB (PRN) NEB (09:30)
[2016-05-24] MEDS: HEPARIN-D5W INJ 250 ML IV SCH (09:30)
[2016-05-24] MEDS: methylPREDNISolone SOD SUCC 40 MG/1 ML VIAL IV PUSH SCH ×3 (09:37→17:15)
--- NOTE | 2016-05-24 09:53 | HHI.PR ---
Subjective Remarks Follow up for PE in a patient with a history of SDH. Patient is currently doing well. No bleeding, no chest pain, SOB, fever, chills. Tolerating diet well. Objective Vitals Vital Signs Date Time Temp Pulse Resp B/P Pulse Ox O2 Delivery O2 Flow Rate FiO2 05/24/16 09:50 96 Nasal Cannula 3.00 05/24/16 08:00 97.7 68 18 147/87 97 05/24/16 05:20 94 Nasal Cannula 3.00 05/24/16 03:34 98.2 71 18 165/79 93 05/23/16 23:37 160/78 Automatic Cuff 05/23/16 23:14 97.4 75 18 164/83 93 05/23/16 20:18 73 05/23/16 20:08 97.3 76 18 147/72 97 05/23/16 17:00 97.7 70 20 166/78 97 05/23/16 15:59 70 18 164/84 100 Nasal Cannula 2 05/23/16 13:28 68 14 163/86 96 Nasal Cannula 2 05/23/16 12:33 70 18 178/85 98 Nasal Cannula 2 05/23/16 10:27 71 18 98 Nasal Cannula 2 05/23/16 10:22 82 16 137/73 88 I/O 05/23/16 05/23/16 05/23/16 05/24/16 05/24/16 05/24/16 07:00 15:00 23:00 07:00 15:00 23:00 Intake Total 0 ml Output Total 450 ml Balance -450 ml Intake Oral 0 ml Output Urine Total 450 ml # Bowel Movements 0 Result Diagram: 05/23/16 1826 05/24/16 0739 Imaging Last Impressions Chest X-Ray 05/24/16 0000 Signed Impressions: Service Date/Time: Tuesday, May 24, 2016 10:05 - CONCLUSION: Poor inspiratory chest with mild basilar atelectasis especially on the left. No evidence of acute congestion or consolidating airspace disease. Santino Ospina MD Head CT 05/23/16 1519 Signed Impressions: Service Date/Time: Monday, May 23, 2016 15:33 - CONCLUSION: 1. Small left subdural hemorrhage. 2. Atrophy and remote lacunar infarcts. Gil Kaur MD CT Angiography 05/23/16 1111 Signed Impressions: Service Date/Time: Monday, May 23, 2016 13:04 - CONCLUSION: 1. Bilateral pulmonary emboli are noted. 2. Atelectasis, interstitial lung disease and patchy airspace disease at the bases. 3. Mild dilatation of the ascending aorta up to 4.2 cm. Gil Kaur MD Lower Extremity Ultrasound 05/23/16 0000 Signed Impressions: Service Date/Time: Monday, May 23, 2016 22:05 - CONCLUSION: No DVT in either lower extremity. John Wagner MD Objective Remarks GENERAL: AOX3, NAD. SKIN: Warm and dry. HEAD: Normocephalic. EYES: No scleral icterus. No injection or drainage. NECK: Supple, trachea midline. No JVD or lymphadenopathy. CARDIOVASCULAR: Regular rate and rhythm without murmurs, gallops, or rubs. RESPIRATORY: Breath Poor air entry, coarse breath sounds diffusely. GASTROINTESTINAL: Abdomen soft, non-tender, nondistended. MUSCULOSKELETAL: No cyanosis, or edema. BACK: Nontender without obvious deformity. No CVA tenderness. Procedures Permanent IVC filter 05/24/2016 by IR. A/P Problem List: (1) Pulmonary embolism ICD Code: I26.99 Status: Acute (2) Atrial fibrillation ICD Code: I48.91 Status: Acute (3) History of subdural hematoma ICD Code: Z86.79 Status: Acute (4) DM (diabetes mellitus) ICD Code: E11.9 Status: Acute (5) HTN (hypertension) ICD Code: I10 Status: Acute Assessment and Plan Mr. Lamar is an 80-year-old with a history of CAD with history of CABG with triple bypass, atrial fibrillation, COPD, DM, HTN, hypercholesteremia, prostate cancer with radiation, GERD, degenerative disc disease and arthritis who presents with sharp nonradiating right anterior chest pain. Bilateral PE: CT angiography results reviewed, bilateral pulmonary emboli are noted. Atelectasis, interstitial lung disease and patchy airspace disease at the bases. Mild dilation of the ascending aorta up to 4.2cm. Hematology consulted, appreciate input regarding anticoagulation with associated subdural hemorrhage. Consider IVCF. IV morphine x 1. Pain control with oral [place] as needed, with IV Morphine for breakthrough. - SDH occurred in January 2016. - Based on literature review (uptodate), restarting anti-coagulation 7 to 14 days after ICH appears to be reasonable. - Newer agents (Dabigatran, Rivaroxaban, apixaban) would be preferable due to lower risk of ICH. - Discussed with neurosurgery and hematology on 05/23/2016, appreciate input. Will continue cautious anticoagulation. - Permanent IVC filter placement by IR today. - Continue heparin drip without bolus. - If okay with hematology, will consider transitioning to Apixaban (no bridging required) or Dabigatran Subdural hemorrhage: CT head results reviewed, small left subdural hemorrhage noted. Atrophy and remote lacunar infarcts. Neurosurgery consulted. I also reviewed reports of previous CT head done at [place], [place]. CT head reports from February 2016 indicates stable SDH. Although we cannot compare images, CT head done on 05/23/2016 likely indicates residual old SDH and not a new SDH. Hypertension - Increase Amlodipine to 10mg Qday. Good control of BP would be extremely important in this patient given his history of SDH. CAD: With chest pain above, likely related to PE. Rule out ACS per protocol, trend cardiac enzymes. Continue metoprolol and statin. Atrial fibrillation - [id number] score likely greater than 4 (age, HTN, DM). HAS-BLED score is 2. - This would be another indication to start anti-coagulation and benefit outweigh the risk of anticoagulation. PEDRITO: Creatinine 1.60 --> 1.26. DM: NovoLog sliding scale. Hold metformin for now. Monitor Accu-Cheks. Other chronic medical issues include GERD, COPD, depression: Stable at this time and will continue home medications as indicated. Full code. Heparin gtt. Quincy Velazquez DO May 24, 2016 09:53
--- NOTE | 2016-05-24 10:27 | RADRPT ---
EXAM DATE/TIME: 05/24/2016 10:05 [place] COMPARISON: CHEST SINGLE AP, May 23, 2016, 11:13. INDICATIONS : Dyspnea and cough. MEDICAL HISTORY : Chronic obstructive pulmonary disease. Hypertension Cardiovascular disease. Diabetes mellitus ty pe 2. Carcinoma, prostate. Pulmonary emboli. SURGICAL HISTORY : CABG. Appendectomy. Triple bypass 4 years ago. ENCOUNTER: Subsequent ACUITY: 2 days PAIN SCORE: 0/10 LOCATION: Bilateral chest FINDINGS: Lungs are hypoaerated. There is no evidence of pulmonary edema. Some mild air space disease is identi fied in the bases especially on the left. There is no evidence of consolidating airspace disease Heart and mediastinal structures are stable. Changes from prior CABG are again noted CONCLUSION: Poor inspiratory chest with mild basilar atelectasis especially on the left. No evidence of acute congestion or consolidating airspace disease. Santino Ospina MD on May 24, 2016 at 10:23 Board Certified Radiologist. This report was verified electronically.
--- NOTE | 2016-05-24 11:39 | EKG ---
Date Performed: 05/23/2016 Time Performed: 21:41:13 PTAGE: 80 years EKG: Sinus rhythm VOLTAGE CRITERIA FOR LVH NONSPECIFIC ST & T-WAVE ABNORMALITY ABNORMAL ECG PREVIOUS TRACING : 05/23/2016 10.29 DOCTOR: Teja Becerirl Interpretating Date/Time 05/24/2016 11:36:06
--- NOTE | 2016-05-24 11:53 | EKG ---
Date Performed: 05/23/2016 Time Performed: 10:29:22 PTAGE: 80 years EKG: Sinus rhythm VOLTAGE CRITERIA FOR LVH NONSPECIFIC T-WAVE ABNORMALITY ABNORMAL ECG PREVIOUS TRACING : 08/21/2008 09.31 DOCTOR: Teja Becerril Interpretating Date/Time 05/24/2016 11:46:51
[2016-05-24 12:02] LABS: AUTOMATED NEUTROPHIL # 7.6 TH/MM3 (1.8-7.7); BASOPHIL % 0.2 % (0.0-2.0); EOSINOPHIL # 0.4 TH/MM3 (0-0.4); EOSINOPHIL % 4.3 % (0.0-4.0); HEMATOCRIT 38.7 % (39.0-51.0); HEMO FLAGS DIFF FINAL; LYMPH % 9.6 % (9.0-44.0); LYMPHOCYTE # 0.9 TH/MM3 (1.0-4.8); MEAN CELL VOLUME 93.4 FL (80.0-100.0); MEAN CORPUSCULAR HEMOGLOBIN 30.6 PG (27.0-34.0); MEAN CORPUSCULAR HGB CONC 32.8 % (32.0-36.0); MONO % 4.5 % (0.0-8.0); NEUT % 81.4 % (16.0-70.0); PLATELET COUNT 112 TH/MM3 (150-450); RED BLOOD COUNT 4.15 MIL/MM3 (4.50-5.90); RED CELL DISTRIBUTION WIDTH 15.6 % (11.6-17.2); WHITE BLOOD COUNT 9.3 TH/MM3 (4.0-11.0)
[2016-05-24 12:23] LABS: APTT (PATIENT) 112.9 SEC (24.3-30.1)
--- NOTE | 2016-05-24 12:45 | PD.ONC.PN ---
Subjective Subjective Remarks Afebrile overnight. Patient feeling short of breath today. at bedside wants to know when he is going down for IVC placement. Objective Data Date Time Temp Pulse Resp B/P Pulse Ox O2 Delivery O2 Flow Rate FiO2 05/24/16 09:50 96 Nasal Cannula 3.00 05/24/16 08:00 97.7 68 18 147/87 97 05/24/16 05:20 94 Nasal Cannula 3.00 05/24/16 03:34 98.2 71 18 165/79 93 05/23/16 23:37 160/78 Automatic Cuff 05/23/16 23:14 97.4 75 18 164/83 93 05/23/16 20:18 73 05/23/16 20:08 97.3 76 18 147/72 97 05/23/16 17:00 97.7 70 20 166/78 97 05/23/16 15:59 70 18 164/84 100 Nasal Cannula 2 05/23/16 13:28 68 14 163/86 96 Nasal Cannula 2 Result Diagram: 05/24/16 1111 05/24/16 0739 Laboratory Results Laboratory Tests Test 05/23/16 05/23/16 05/24/16 05/24/16 15:55 18:26 00:05 07:39 Troponin I LESS THAN 0.02 LESS THAN 0.02 NG/ML NG/ML White Blood Count 10.1 TH/MM3 Red Blood Count 4.49 MIL/MM3 Hemoglobin 13.7 GM/DL Hematocrit 41.6 % Mean Corpuscular Volume 92.8 FL Mean Corpuscular Hemoglobin 30.5 PG Mean Corpuscular Hemoglobin 32.9 % Concent Red Cell Distribution Width 15.5 % Platelet Count 130 TH/MM3 Mean Platelet Volume 8.8 FL Prothrombin Time 11.4 SEC Prothromb Time International 1.0 RATIO Ratio Activated Partial 25.9 SEC 69.9 SEC Thromboplast Time Sodium Level 141 MEQ/L Potassium Level 5.0 MEQ/L Chloride Level 104 MEQ/L Carbon Dioxide Level 29.3 MEQ/L Anion Gap 8 MEQ/L Blood Urea Nitrogen 19 MG/DL Creatinine 1.26 MG/DL Estimat Glomerular Filtration 55 ML/MIN Rate Random Glucose 116 MG/DL Calcium Level 8.1 MG/DL Test 05/24/16 11:11 White Blood Count 9.3 TH/MM3 Red Blood Count 4.15 MIL/MM3 Hemoglobin 12.7 GM/DL Hematocrit 38.7 % Mean Corpuscular Volume 93.4 FL Mean Corpuscular Hemoglobin 30.6 PG Mean Corpuscular Hemoglobin 32.8 % Concent Red Cell Distribution Width 15.6 % Platelet Count 112 TH/MM3 Mean Platelet Volume 8.7 FL Neutrophils (%) (Auto) 81.4 % Lymphocytes (%) (Auto) 9.6 % Monocytes (%) (Auto) 4.5 % Eosinophils (%) (Auto) 4.3 % Basophils (%) (Auto) 0.2 % Neutrophils # (Auto) 7.6 TH/MM3 Lymphocytes # (Auto) 0.9 TH/MM3 Monocytes # (Auto) 0.4 TH/MM3 Eosinophils # (Auto) 0.4 TH/MM3 Basophils # (Auto) 0.0 TH/MM3 CBC Comment DIFF FINAL Differential Comment Activated Partial 112.9 SEC Thromboplast Time Imaging Studies Last 24 hours Impressions Chest X-Ray 05/24/16 0000 Signed Impressions: Service Date/Time: Tuesday, May 24, 2016 10:05 - CONCLUSION: Poor inspiratory chest with mild basilar atelectasis especially on the left. No evidence of acute congestion or consolidating airspace disease. Santino Ospina MD Head CT 05/23/16 1519 Signed Impressions: Service Date/Time: Monday, May 23, 2016 15:33 - CONCLUSION: 1. Small left subdural hemorrhage. 2. Atrophy and remote lacunar infarcts. Gil Kaur MD Administered Medications Medications (Trade) Dose Ordered Sig/Uriel Route PRN Reason Start Time Stop Time Status Last Admin Dose Admin Sodium Chloride (NS Flush) 2 ml BID IV FLUSH 05/23/16 21:00 05/24/16 09:24 Atorvastatin Calcium (Lipitor) 40 mg HS PO 05/23/16 21:00 05/23/16 20:29 Budesonide/ Formoterol Fumarate (Symbicort 160-4.5 Inh) 1 puff Q12HR INH 05/23/16 21:00 05/24/16 09:22 Citalopram Hydrobromide (CeleXA) 40 mg DAILY PO 05/24/16 09:00 05/24/16 09:23 Docusate Sodium (Colace) 100 mg BID PO 05/23/16 21:00 05/24/16 09:22 Metoprolol Tartrate (Lopressor) 50 mg BID PO 05/23/16 21:00 05/24/16 09:22 Pantoprazole Sodium (Protonix) 20 mg DAILY PO 05/24/16 09:00 05/24/16 09:22 Acetaminophen/ Hydrocodone Bitart ([place] 7.5-325 Mg) 1 tab Q4H PRN PO PAIN SCALE 6 TO 10 05/23/16 16:30 05/24/16 03:38 Morphine Sulfate 4 mg 4 mg Q3H PRN IV BREAKTHROUGH PAIN 05/23/16 16:30 05/23/16 23:32 Heparin Sodium/ Dextrose (Heparin-D5W Inj) 250 ml @ 0 mls/hr TITRATE IV 05/23/16 17:30 05/24/16 09:30 Amlodipine Besylate (Norvasc) 5 mg DAILY PO 05/24/16 09:00 05/24/16 09:22 Methylprednisolone Sodium Succinate (SoluMEDROL INJ) 40 mg Q6HR IV PUSH 05/24/16 09:30 05/24/16 11:53 Objective Remarks GENERAL: Elderly male, sitting up in bed on O2 via NC. SKIN: Warm and dry. HEAD: Normocephalic. EYES: No injection or drainage. NECK: Supple, trachea midline. CARDIOVASCULAR: +S1/S2 RESPIRATORY: diminished at bases. occasional rhonchi. GASTROINTESTINAL: Abdomen soft, non-tender, nondistended. EXTREMITIES: No cyanosis MUSCULOSKELETAL: Adequate muscle tone. NEUROLOGICAL: awake and alert, normal speech. Assessment/Plan Problem List: (1) Pulmonary embolism Status: Acute Plan: 05/24: IVC filter placement this afternoon in IR --currently on heparin gtt --clear by NS to start ac with close monitoring --u/s LE shows no DVT Assessment 80y/o with pulmonary embolism in a patient who has a history of subdural hematoma in January of 2016. h/o Hypertension, hypercholesterolemia, diabetes, COPD, multiple TIAs, chronic atrial fibrillation, coronary artery disease status post NV, history of prostate cancer status post radiation therapy. Attending Statement no new c/o Doppler US = No Dvt for IVC filter today. continue heparin . monitor SDH Kamilla Lizama May 24, 2016 12:45 Christ Lopez MD May 24, 2016 20:39
[2016-05-24] MEDS: RESP: ALBUTEROL 2.5 MG/IPRATROPIUM 0.5 MG NEB (SCH) NEB ×2 (13:04→21:18)
[2016-05-24] MEDS ORDERED: fentaNYL CITRATE 250 MCG/5 ML AMP ONE (15:26)
--- NOTE | 2016-05-24 15:58 | PD.RAD ---
Post Procedure Progress Note Pre Procedure Diagnosis: (1) Pulmonary embolism Post Procedure Diagnosis: (1) Pulmonary embolism Procedure Date: May 24, 2016 Supervising Radiologist: Santino Ospina Proceduralist/Assist: Hallie Soto, RT(R)(), Agustín Asif RT(R)() Anesthesia: Local, Analgesia Plan of Activity Patient to Unit: Nursing Unit Patient Condition: Fair See PACS Report for procedural detail/treatment Vascular-Venous Procedure Procedure 1 Procedure Site: Abdominal Procedure(s): Permanent IVC Filter Access Access Site(s): Right Femoral Vein Closure Site(s): Right manual pressure Santino Ospina MD May 24, 2016 15:58
[2016-05-24] MEDS ORDERED: IOHEXOL 350 MG/ML 50 ML BTL (for RAD DIAG) IV ONE (16:14)
[2016-05-24 16:53] LABS: APTT (PATIENT) 50.4 SEC (24.3-30.1)
[2016-05-24] MEDS: ATORVASTATIN 40 MG TAB PO SCH (21:06)
[2016-05-25] VITALS (8 sets, daily range): BP systolic 120–162; BP diastolic 71–92; PULSE 73–84; RESP 18–20; TEMP 97.5–98.4; O2SAT 90–94
[2016-05-25] MEDS: methylPREDNISolone SOD SUCC 40 MG/1 ML VIAL IV PUSH SCH ×4 (00:11→17:27)
[2016-05-25 02:56] LABS: APTT (PATIENT) 34.9 SEC (24.3-30.1)
[2016-05-25] MEDS: INSULIN ASPART SUPPLEMENTAL SCALE SQ SCH ×4 (05:43→20:53)
[2016-05-25] MEDS: RESP: ALBUTEROL 2.5 MG/IPRATROPIUM 0.5 MG NEB (SCH) NEB ×3 (08:58→21:35)
[2016-05-25] MEDS: METOPROLOL TARTRATE 50 MG TAB PO SCH ×2 (09:17→20:52)
[2016-05-25] MEDS: DOCUSATE SODIUM 100 MG CAP PO SCH ×2 (09:17→20:51)
[2016-05-25] MEDS: CITALOPRAM HYDROBROMIDE 40 MG TAB PO SCH (09:18)
[2016-05-25] MEDS: PANTOPRAZOLE SOD 20 MG DELAYED RELEASE TAB PO SCH (09:18)
[2016-05-25] MEDS: SODIUM CHLORIDE 0.9% FLUSH 10 ML FLUSH IV FLUSH SCH ×2 (09:18→21:08)
[2016-05-25] MEDS: BUDESONIDE-FORMOTEROL 160/4.5 MCG INHALER INH SCH ×2 (09:19→21:08)
--- NOTE | 2016-05-25 09:57 | PD.ONC.PN ---
Subjective Subjective Remarks was confuse this AM ( per ) Objective Data Date Time Temp Pulse Resp B/P Pulse Ox O2 Delivery O2 Flow Rate FiO2 05/25/16 09:00 92 Nasal Cannula 3.00 05/25/16 08:00 97.7 73 18 162/77 90 05/25/16 04:00 98.1 74 20 138/75 91 05/24/16 23:56 97.9 79 20 148/71 92 05/24/16 21:21 91 Nasal Cannula 3.00 05/24/16 21:00 83 05/24/16 20:00 97.5 85 20 167/77 91 05/24/16 12:00 97.0 77 18 151/72 97 05/25/16 05/25/16 05/25/16 07:00 15:00 23:00 Intake Total 240 ml Output Total 350 ml Balance -110 ml Result Diagram: 05/24/16 1111 05/24/16 0739 Laboratory Results Laboratory Tests Test 05/24/16 05/24/16 05/25/16 11:11 16:20 02:31 White Blood Count 9.3 TH/MM3 Red Blood Count 4.15 MIL/MM3 Hemoglobin 12.7 GM/DL Hematocrit 38.7 % Mean Corpuscular Volume 93.4 FL Mean Corpuscular Hemoglobin 30.6 PG Mean Corpuscular Hemoglobin 32.8 % Concent Red Cell Distribution Width 15.6 % Platelet Count 112 TH/MM3 Mean Platelet Volume 8.7 FL Neutrophils (%) (Auto) 81.4 % Lymphocytes (%) (Auto) 9.6 % Monocytes (%) (Auto) 4.5 % Eosinophils (%) (Auto) 4.3 % Basophils (%) (Auto) 0.2 % Neutrophils # (Auto) 7.6 TH/MM3 Lymphocytes # (Auto) 0.9 TH/MM3 Monocytes # (Auto) 0.4 TH/MM3 Eosinophils # (Auto) 0.4 TH/MM3 Basophils # (Auto) 0.0 TH/MM3 CBC Comment DIFF FINAL Differential Comment Activated Partial 112.9 SEC 50.4 SEC 34.9 SEC Thromboplast Time Culture Results Microbiology Date/Time Procedure Status Source Growth 05/24/16 20:08 Stool Occult Blood (NAILA) - Final Complete Stool Stool HEMOCCULT NEGATIVE Administered Medications Medications (Trade) Dose Ordered Sig/Uriel Route PRN Reason Start Time Stop Time Status Last Admin Dose Admin Sodium Chloride (NS Flush) 2 ml BID IV FLUSH 05/23/16 21:00 05/25/16 09:18 Atorvastatin Calcium (Lipitor) 40 mg HS PO 05/23/16 21:00 05/24/16 21:06 Budesonide/ Formoterol Fumarate (Symbicort 160-4.5 Inh) 1 puff Q12HR INH 05/23/16 21:00 05/25/16 09:19 Citalopram Hydrobromide (CeleXA) 40 mg DAILY PO 05/24/16 09:00 05/25/16 09:18 Docusate Sodium (Colace) 100 mg BID PO 05/23/16 21:00 05/25/16 09:17 Metoprolol Tartrate (Lopressor) 50 mg BID PO 05/23/16 21:00 05/25/16 09:17 Pantoprazole Sodium (Protonix) 20 mg DAILY PO 05/24/16 09:00 05/25/16 09:18 Acetaminophen/ Hydrocodone Bitart ([place] 7.5-325 Mg) 1 tab Q4H PRN PO PAIN SCALE 6 TO 10 05/23/16 16:30 05/24/16 03:38 Morphine Sulfate 4 mg 4 mg Q3H PRN IV BREAKTHROUGH PAIN 05/23/16 16:30 05/23/16 23:32 Heparin Sodium/ Dextrose (Heparin-D5W Inj) 250 ml @ 0 mls/hr TITRATE IV 05/23/16 17:30 05/24/16 09:30 Methylprednisolone Sodium Succinate (SoluMEDROL INJ) 40 mg Q6HR IV PUSH 05/24/16 09:30 05/25/16 05:43 Amlodipine Besylate (Norvasc) 10 mg DAILY PO 05/25/16 09:00 05/25/16 09:18 Objective Remarks GENERAL: Elderly male, sitting up in bed on O2 via NC. SKIN: Warm and dry. HEAD: Normocephalic. EYES: No injection or drainage. NECK: Supple, trachea midline. CARDIOVASCULAR: +S1/S2 RESPIRATORY: diminished at bases. occasional rhonchi. GASTROINTESTINAL: Abdomen soft, non-tender, nondistended. EXTREMITIES: No cyanosis MUSCULOSKELETAL: Adequate muscle tone. NEUROLOGICAL: awake and alert, normal speech. Assessment/Plan Problem List: (1) Pulmonary embolism Status: Acute Plan: 4/12 S/P IVC filter. continue heparin. monitor for worsening of SDH. if remains stable then transition into coumadin. available prn 05/24: IVC filter placement this afternoon in IR --currently on heparin gtt --clear by NS to start ac with close monitoring --u/s LE shows no DVT Assessment 80y/o with pulmonary embolism in a patient who has a history of subdural hematoma in January of 2016. h/o Hypertension, hypercholesterolemia, diabetes, COPD, multiple TIAs, chronic atrial fibrillation, coronary artery disease status post [place], history of prostate cancer status post radiation therapy. Christ Lopez MD May 25, 2016 09:57
--- NOTE | 2016-05-25 09:59 | RADRPT ---
EXAM DATE/TIME: 05/24/2016 15:24 [place] COMPARISON: No previous studies available for comparison. INDICATIONS : Patient with bilateral pulmonary emboli in need of IVC filter placement. MEDICAL HISTORY : CAD with history of CABG with triple bypass Atrial fibrillation COPD DM HTN Hypercholesteremia Prostate cancer with radiation GERD Degenerative disc disease Arthritis. SURGICAL HISTORY : CABG with triple bypass Appendectomy Tonsillectomy ENCOUNTER: Initial ACUITY: 2 days PAIN SCORE: 0/10 FLUORO TIME: 0.9 minutes IMAGE SERIES: 2 ACCESS SITE: Right Femoral vein CONTRAST: 1.) 30 cc Omnipaque (iohexol) 350 MEDICATION(S): 1.) 100 mg fentanyl (Sublimaze) IV DEVICE(S): 1.) Inferior vena cava Venatech IVC filter PROCEDURE : 1. Ultrasound-guided venipuncture. 2. Inferior venacavogram. 3. Inferior vena cava filter placement. 4. Conscious sedation with continuous EKG and oximetry monitoring. The risks, benefits and alternatives to the procedure were explained and verbal and written consent w as obtained. The site was prepped in sterile fashion. Full sterile technique was used, including ca p, mask, sterile gloves and gown and a large sterile sheet. Hand hygiene and 2% chlorhexidine and/or betadine/alcohol prep was utilized per protocol for cutaneous antisepsis. The skin and subcutaneous tissues were infiltrated with local anesthetic solution. With ultrasound and fluoroscopic guidance the targeted vein was punctured and a vascular sheath was p laced. Inferior venacavogram was performed to demonstrate level of renal veins. No caval thrombus was identified. The prescribed filter was deployed in the infrarenal inferior vena cava. Following deplo yment the filter was identified in good position. Conscious sedation was performed with the prescribed dosages and duration as above in the presence of an independent trained radiology nurse to assist in the monitoring of the patient. EKG and oximetry remained stable throughout the procedure. The patient tolerated the procedure well and there were n o complications. The patient was sent to post anesthesia recovery in stable condition. CONCLUSION: Uncomplicated inferior vena cava filter placement as above. Santino Ospina MD on May 25, 2016 at 9:58 Board Certified Radiologist. This report was verified electronically.
[2016-05-25] MEDS: HEPARIN-D5W INJ 250 ML IV SCH (12:13)
--- NOTE | 2016-05-25 13:21 | HHI.NSPN ---
(Katherine Reina) Note Status Status: Progress Note (Katherine Reina) Interval History Interval History Mr. Lamar is an 80-year-old male with a known history of CAD with history of CABG with triple bypass, atrial fibrillation, COPD, DM, HTN, hypercholesteremia , prostate cancer with radiation, GERD, degenerative disc disease and arthritis. Patient presented to the ED with complaints of severe nonradiating sharp anterior right chest pain that began at 0900 this am, associated with perspiration, shortness of breath and worse with breathing. Denies any associated symptoms of nausea or vomiting. Per patient report, he has fallen multiple times with history of hemorrhagic bleed in March or April of this year after a fall. He was on Coumadin at that time but was taken off. Denies any recent fever or chills. Denies any recent surgeries. He did fly from [place] two weeks ago, otherwise denies any recent travel. 05/25: breathing improved, s/p IVC Filter yesterday. denies headaches, focal weakness, vomiting. (Katherine Reina) Labs, Micro, & Vital Signs Results Date Time Temp Pulse Resp B/P Pulse Ox O2 Delivery O2 Flow Rate FiO2 05/25/16 09:00 92 Nasal Cannula 3.00 05/25/16 08:28 78 05/25/16 08:00 97.7 73 18 162/77 90 05/25/16 04:00 98.1 74 20 138/75 91 05/24/16 23:56 97.9 79 20 148/71 92 05/24/16 21:21 91 Nasal Cannula 3.00 05/24/16 21:00 83 05/24/16 20:00 97.5 85 20 167/77 91 05/25/16 07:00 Intake Total 960 ml Output Total 1350 ml Balance -390 ml Constitutional Vital Signs Date Time Temp Pulse Resp B/P Pulse Ox O2 Delivery O2 Flow Rate FiO2 05/25/16 09:00 92 Nasal Cannula 3.00 05/25/16 08:28 78 05/25/16 08:00 97.7 73 18 162/77 90 05/25/16 04:00 98.1 74 20 138/75 91 05/24/16 23:56 97.9 79 20 148/71 92 05/24/16 21:21 91 Nasal Cannula 3.00 05/24/16 21:00 83 05/24/16 20:00 97.5 85 20 167/77 91 05/25/16 07:00 Intake Total 960 ml Output Total 1350 ml Balance -390 ml (Katherine Reina) Review of Systems/Exam Exam Alert, oriented. Appears comfortable in bed. Follows commands well CN: pupils equal, facial motor symmetric. Tongue midline. Motor: moves all four extremities symmetrically Plantars downgoing b/l Sensory: intact to light touch x 4 Cerebellar exam intact finger to nose b/l (Katherine Reina) Medications Current Medications Current Medications Medications (Trade) Dose Ordered Sig/Uriel Route PRN Reason Start Time Stop Time Status Last Admin Dose Admin Sodium Chloride (NS Flush) 2 ml UNSCH PRN IV FLUSH FLUSH AFTER USING IV ACCESS 05/23/16 15:00 Sodium Chloride (NS Flush) 2 ml BID IV FLUSH 05/23/16 21:00 05/25/16 09:18 Acetaminophen (Tylenol) 650 mg Q4H PRN PO Fever, headache 05/23/16 15:00 Ondansetron HCl (Zofran Inj) 4 mg Q6H PRN IVP NAUSEA OR VOMITING 05/23/16 15:00 Magnesium Hydroxide (Milk Of Magnesia Liq) 30 ml Q12H PRN PO CONSTIPATION 05/23/16 15:00 Dextrose (D50w (Vial) Inj) 25 ml UNSCH PRN IV PUSH HYPOGLYCEMIA-SEE COMMENTS 05/23/16 16:30 Glucagon (Glucagon Inj) 1 mg UNSCH PRN OTHER HYPOGLYCEMIA-SEE COMMENTS 05/23/16 16:30 Atorvastatin Calcium (Lipitor) 40 mg HS PO 05/23/16 21:00 05/24/16 21:06 Budesonide/ Formoterol Fumarate (Symbicort 160-4.5 Inh) 1 puff Q12HR INH 05/23/16 21:00 05/25/16 09:19 Citalopram Hydrobromide (CeleXA) 40 mg DAILY PO 05/24/16 09:00 05/25/16 09:18 Docusate Sodium (Colace) 100 mg BID PO 05/23/16 21:00 05/25/16 09:17 Metoprolol Tartrate (Lopressor) 50 mg BID PO 05/23/16 21:00 05/25/16 09:17 Pantoprazole Sodium (Protonix) 20 mg DAILY PO 05/24/16 09:00 05/25/16 09:18 Acetaminophen (Tylenol) 650 mg Q6H PRN PO PAIN SCALE 1 TO 2 05/23/16 16:30 Acetaminophen/ Hydrocodone Bitart ([place] 5-325 Mg) 1 tab Q4H PRN PO PAIN SCALE 3 TO 5 05/23/16 16:30 Acetaminophen/ Hydrocodone Bitart ([place] 7.5-325 Mg) 1 tab Q4H PRN PO PAIN SCALE 6 TO 10 05/23/16 16:30 05/24/16 03:38 Morphine Sulfate (Morphine Inj) 4 mg Q3H PRN IV BREAKTHROUGH PAIN 05/23/16 16:30 05/23/16 23:32 Naloxone HCl 0.4 mg 0.4 mg UNSCH PRN IV SEE LABEL COMMENTS 05/23/16 16:30 Heparin Sodium/ Dextrose (Heparin-D5W Inj) 250 ml @ 0 mls/hr TITRATE IV 05/23/16 17:30 05/25/16 12:13 Methylprednisolone Sodium Succinate (SoluMEDROL INJ) 40 mg Q6HR IV PUSH 05/24/16 09:30 05/25/16 12:11 Amlodipine Besylate (Norvasc) 10 mg DAILY PO 05/25/16 09:00 05/25/16 09:18 (Katherine Reina) Medical Decision Making MDM Remarks 80 y/o male with subdural hematoma - stable pulmonary embolism, s/p placement of IVC Filter (Katherine Reina) Plan Plan Remarks cont medical mgt for PE on heparin drip cont close neuro exam in view of high risk of ICH on anticoagulation will sign off, call prn (Katherine Reina) Attending Statement Respiratory. pulmonary toilette, nasotracheal suction, and breathing treatments with nebulizers. Hypertension Cont Amlodipine 5mg Qday for good control of BP CAD: Continue metoprolol Atrial fibrillation [id number] score likely greater than 4 (age, HTN, DM). HAS -BLED score is 2. PEDRITO: monitor closely urine output, BUN and creatinine PT and OT Nutrition. Oral diet Diabetes. Monitor serial Acu checks and SSI for tight control ID monitor for signs of infection Protonix for stress ulcer prophylaxis Michael hose and SCD's for DVT prophylaxis The exam, history, and the medical decision-making described in the above note were completed with the assistance of the mid-level provider. I reviewed and agree with the findings presented. I attest that I had a [id number] encounter with the patient on the same day, and personally performed and documented my assessment and findings in the medical record. (Lui Angela MD) Katherine Reina May 25, 2016 13:21 Lui Angela MD May 25, 2016 17:04
[2016-05-25] MEDS ORDERED: LISINOPRIL 5 MG TAB PO ONE (14:30)
[2016-05-25 14:41] LABS: APTT (PATIENT) 50.1 SEC (24.3-30.1)
--- NOTE | 2016-05-25 17:52 | HHI.PR ---
Subjective Remarks Follow up for PE in a patient with a history of SDH. Patient seen and examined by Dr. Velazquez and myself. Denies any acute medical complaints. Afebrile. at bedside, spoke extensively about anticoagulation plan for stopping heparin drip and starting Apixaban. All questions answered, and patient both agreeable to plan. Objective Vitals Vital Signs Date Time Temp Pulse Resp B/P Pulse Ox O2 Delivery O2 Flow Rate FiO2 05/25/16 12:00 97.5 73 20 154/74 94 05/25/16 09:00 92 Nasal Cannula 3.00 05/25/16 08:28 78 05/25/16 08:00 97.7 73 18 162/77 90 05/25/16 04:00 98.1 74 20 138/75 91 05/24/16 23:56 97.9 79 20 148/71 92 05/24/16 21:21 91 Nasal Cannula 3.00 05/24/16 21:00 83 05/24/16 20:00 97.5 85 20 167/77 91 I/O 05/24/16 05/24/16 05/24/16 05/25/16 05/25/16 05/25/16 07:00 15:00 23:00 07:00 15:00 23:00 Intake Total 0 ml 480 ml 240 ml 240 ml Output Total 450 ml 700 ml 300 ml 350 ml Balance -450 ml -220 ml -60 ml -110 ml Intake Oral 0 ml 480 ml 240 ml 240 ml Output Urine Total 450 ml 700 ml 300 ml 350 ml # Bowel Movements 0 0 1 0 Result Diagram: 05/24/16 1111 05/24/16 0739 Imaging Last Impressions IVC Filter Placement X-Ray 05/24/16 0000 Signed Impressions: Service Date/Time: Tuesday, May 24, 2016 15:24 - CONCLUSION: Uncomplicated inferior vena cava filter placement as above. Santino Ospina MD Chest X-Ray 05/24/16 0000 Signed Impressions: Service Date/Time: Tuesday, May 24, 2016 10:05 - CONCLUSION: Poor inspiratory chest with mild basilar atelectasis especially on the left. No evidence of acute congestion or consolidating airspace disease. Santino Ospina MD Head CT 05/23/16 1519 Signed Impressions: Service Date/Time: Monday, May 23, 2016 15:33 - CONCLUSION: 1. Small left subdural hemorrhage. 2. Atrophy and remote lacunar infarcts. Gil Kaur MD CT Angiography 05/23/16 1111 Signed Impressions: Service Date/Time: Monday, May 23, 2016 13:04 - CONCLUSION: 1. Bilateral pulmonary emboli are noted. 2. Atelectasis, interstitial lung disease and patchy airspace disease at the bases. 3. Mild dilatation of the ascending aorta up to 4.2 cm. Gil Kaur MD Lower Extremity Ultrasound 05/23/16 0000 Signed Impressions: Service Date/Time: Monday, May 23, 2016 22:05 - CONCLUSION: No DVT in either lower extremity. John Wagner MD Objective Remarks GENERAL: Well-developed well-nourished. NAD. SKIN: Warm and dry. No lesions noted. HEENT: Normocephalic. Pupils equal and round. Mucous membranes pink and moist. CARDIOVASCULAR: Regular rate and rhythm. No murmur appreciated. RESPIRATORY: No accessory muscle use. Clear to auscultation. Breath sounds equal bilaterally. GASTROINTESTINAL: Abdomen soft, non-tender, nondistended. Bowel sounds x4. MUSCULOSKELETAL: No obvious deformities. No clubbing or cyanosis. No edema. No calf swelling or TTP. NEUROLOGICAL: Awake and alert. No focal neurological deficits. Moves upper and lower extremities spontaneously. Normal speech. PSYCHIATRIC: Appropriate mood and affect; insight and judgment normal. Procedures Permanent IVC filter 05/24/2016 by IR. Urinary Catheter: No Vascular Central Line Catheter: No A/P Problem List: (1) Pulmonary embolism ICD Code: I26.99 Status: Acute (2) Atrial fibrillation ICD Code: I48.91 Status: Acute (3) History of subdural hematoma ICD Code: Z86.79 Status: Acute (4) DM (diabetes mellitus) ICD Code: E11.9 Status: Acute (5) HTN (hypertension) ICD Code: I10 Status: Acute Assessment and Plan Mr. Lamar is an 80-year-old with a history of CAD with history of CABG with triple bypass, atrial fibrillation, COPD, DM, HTN, hypercholesteremia, prostate cancer with radiation, GERD, degenerative disc disease and arthritis who presents with sharp nonradiating right anterior chest pain. Bilateral PE: CT angiography results reviewed, bilateral pulmonary emboli are noted. Atelectasis, interstitial lung disease and patchy airspace disease at the bases. Mild dilation of the ascending aorta up to 4.2cm. Hematology consulted and has seen patient, report reviewed. S/p IVC Filter 05/24. Pain control with oral [place] as needed, with IV Morphine for breakthrough. - SDH occurred in January 2016. - Based on literature review (uptodate), restarting anti-coagulation 7 to 14 days after ICH appears to be reasonable. - Newer agents (Dabigatran, Rivaroxaban, apixaban) would be preferable due to lower risk of ICH. - Discussed with neurosurgery and hematology on 05/23/2016, appreciate input. Will continue cautious anticoagulation. - S/p permanent IVC filter placement by IR 05/24. - Discussed with Dr. Lopez about plan for anticoagulation. Discontinue Heparin gtt tonight at 2000 and at same time start [id number] BID for 7 days, then 5 mg BID thereon. This change was discussed with RN. Subdural hemorrhage: CT head results reviewed, small left subdural hemorrhage noted. Atrophy and remote lacunar infarcts. Neurosurgery consulted. I also reviewed reports of previous CT head done at [place], [place]. CT head reports from February 2016 indicates stable SDH. Although we cannot compare images, CT head done on 05/23/2016 likely indicates residual old SDH and not a new SDH. Hypertension - Continue Amlodipine 10mg daily. - Add lisinopril 5 mg daily. Monitor closely, tight control due to SDH history. CAD: With chest pain above, likely related to PE. Cardiac enzymes less than 0.02. Continue metoprolol and statin. Atrial fibrillation - [id number] score likely greater than 6 (age, HTN, DM, TIA hx). HAS-BLED score is 2. - This would be another indication to start anti-coagulation and benefit outweigh the risk of anticoagulation. - Acute kidney injury - Mild hyperkalemia - K+ 5.0 on 05/24/2016. - Creatinine 1.60 --> 1.26. Recheck BMP in am. DM: NovoLog sliding scale. Hold metformin for now. Monitor Accu-Cheks. Generalized weakness: Consult PT. Encourage OOB as tolerated with assistance and assistance device. Other chronic medical issues include GERD, COPD, depression: Stable at this time and will continue home medications as indicated. Full code. Apixaban. Written by Elizabeth Kam, acting as scribe for Dr. Velazquez on 05/25/16 at 1535. All or portions of this note were transcribed by [email or web address] Castillo. I , Dr. Johnathan Velazquez personally performed the history, physical exam, and medical decision making; and confirmed the accuracy of the information in the transcribed note. Authenticated by Dr. Johnathan Velazquez on 05/25/16 at 23:34. Discharge Planning Plan to discharge patient home tomorrow after switch to Apixaban from Heparin yasmin. Elizabeth Kam May 25, 2016 17:52 Quincy Velazquez DO May 25, 2016 22:18
[2016-05-25] MEDS: APIXABAN 5 MG TABLET PO SCH (20:51)
[2016-05-25] MEDS: ATORVASTATIN 40 MG TAB PO SCH (20:52)
[2016-05-26] VITALS: BP 103/53; PULSE 71; RESP 18; TEMP 97.9; O2SAT 95
[2016-05-26] MEDS: methylPREDNISolone SOD SUCC 40 MG/1 ML VIAL IV PUSH SCH ×3 (00:06→12:12)
[2016-05-26 04:00] VITALS: BP 152/84; PULSE 69; RESP 18; TEMP 98.1; O2SAT 96
[2016-05-26] MEDS: INSULIN ASPART SUPPLEMENTAL SCALE SQ SCH ×3 (05:48→16:00)
[2016-05-26 07:33] LABS: MEAN CELL VOLUME 91.7 FL (80.0-100.0); MEAN CORPUSCULAR HEMOGLOBIN 31.1 PG (27.0-34.0); PLATELET COUNT 125 TH/MM3 (150-450); RED BLOOD COUNT 3.82 MIL/MM3 (4.50-5.90); RED CELL DISTRIBUTION WIDTH 15.6 % (11.6-17.2); REVIEW FLAG FINAL
[2016-05-26 07:35] VITALS: O2SAT 97
[2016-05-26] MEDS: RESP: ALBUTEROL 2.5 MG/IPRATROPIUM 0.5 MG NEB (SCH) NEB ×2 (07:35→11:06)
[2016-05-26 07:43] LABS: BICARBONATE 28.5 MEQ/L (21.0-32.0)
[2016-05-26 07:46] LABS: POTASSIUM 5.1 MEQ/L (3.5-5.1)
[2016-05-26 08:00] VITALS: BP 165/82; PULSE 83; RESP 18; TEMP 97.3; O2SAT 98
[2016-05-26] MEDS: CITALOPRAM HYDROBROMIDE 40 MG TAB PO SCH (08:14)
[2016-05-26] MEDS: PANTOPRAZOLE SOD 20 MG DELAYED RELEASE TAB PO SCH (08:14)
[2016-05-26] MEDS: APIXABAN 5 MG TABLET PO SCH (08:14)
[2016-05-26] MEDS: DOCUSATE SODIUM 100 MG CAP PO SCH (08:14)
[2016-05-26] MEDS: METOPROLOL TARTRATE 50 MG TAB PO SCH (08:14)
[2016-05-26] MEDS: SODIUM CHLORIDE 0.9% FLUSH 10 ML FLUSH IV FLUSH SCH (08:15)
[2016-05-26] MEDS: BUDESONIDE-FORMOTEROL 160/4.5 MCG INHALER INH SCH (08:15)
[2016-05-26] MEDS ORDERED: LISINOPRIL 5 MG TAB PO SCH (09:00)
[2016-05-26 12:00] VITALS: BP 144/67; PULSE 74; RESP 20; TEMP 97.4; O2SAT 97
[2016-05-26] MEDS ORDERED: APIX5TAB PO (12:43)
[2016-05-26] MEDS ORDERED: GLIM1TAB PO (12:43)
[2016-05-26] MEDS ORDERED: AMLO10 PO (12:45)
--- NOTE | 2016-05-26 12:52 | HHI.DS ---
Discharge Summary Admission Date May 23, 2016 at 3:08 pm Discharge Date: May 26, 2016 Admitting Diagnosis bilateral pulmonary emboli (1) Pulmonary embolism ICD Code: I26.99 Diagnosis: Principal (2) Atrial fibrillation ICD Code: I48.91 Diagnosis: Principal (3) History of subdural hematoma ICD Code: Z86.79 (4) DM (diabetes mellitus) ICD Code: E11.9 (5) HTN (hypertension) ICD Code: I10 Procedures Permanent IVC filter 05/24/2016 by IR. Brief History - From Admission Mr. Lamar is an 80-year-old male with a known history of CAD with history of CABG with triple bypass, atrial fibrillation, COPD, DM, HTN, hypercholesteremia , prostate cancer with radiation, GERD, degenerative disc disease and arthritis. Patient presented to the ED with complaints of severe nonradiating sharp anterior right chest pain that began at 0900 this am, associated with perspiration, shortness of breath and worse with breathing. Denies any associated symptoms of nausea or vomiting. Per patient report, he has fallen multiple times with history of hemorrhagic bleed in March or April of this year after a fall. He was on Coumadin at that time but was taken off. Denies any recent fever or chills. Denies any recent surgeries. He did fly from [place] two weeks ago, otherwise denies any recent travel. CBC/BMP: 05/26/16 0543 05/26/16 0543 Significant Findings Laboratory Tests Test 05/23/16 05/23/16 05/24/16 05/24/16 15:55 18:26 00:05 07:39 Troponin I LESS THAN 0.02 LESS THAN 0.02 NG/ML NG/ML (0.02-0.05) (0.02-0.05) Red Blood Count 4.49 MIL/MM3 (4.50-5.90) Platelet Count 130 TH/MM3 (150-450) Activated Partial 69.9 SEC Thromboplast Time (24.3-30.1) Blood Urea Nitrogen 19 MG/DL (7-18) Estimat Glomerular Filtration 55 ML/MIN (>89) Rate Random Glucose 116 MG/DL (74-106) Calcium Level 8.1 MG/DL (8.5-10.1) Test 05/24/16 05/24/16 05/25/16 05/25/16 11:11 16:20 02:31 14:00 Red Blood Count 4.15 MIL/MM3 (4.50-5.90) Hemoglobin 12.7 GM/DL (13.0-17.0) Hematocrit 38.7 % (39.0-51.0) Platelet Count 112 TH/MM3 (150-450) Neutrophils (%) (Auto) 81.4 % (16.0-70.0) Eosinophils (%) (Auto) 4.3 % (0.0-4.0) Lymphocytes # (Auto) 0.9 TH/MM3 (1.0-4.8) Activated Partial 112.9 SEC 50.4 SEC 34.9 SEC 50.1 SEC Thromboplast Time (24.3-30.1) (24.3-30.1) (24.3-30.1) (24.3-30.1) Test 05/26/16 05:43 White Blood Count 12.0 TH/MM3 (4.0-11.0) Red Blood Count 3.82 MIL/MM3 (4.50-5.90) Hemoglobin 11.9 GM/DL (13.0-17.0) Hematocrit 35.0 % (39.0-51.0) Platelet Count 125 TH/MM3 (150-450) Blood Urea Nitrogen 28 MG/DL (7-18) Creatinine 1.31 MG/DL (0.60-1.30) Estimat Glomerular Filtration 52 ML/MIN (>89) Rate Random Glucose 190 MG/DL (74-106) Calcium Level 8.2 MG/DL (8.5-10.1) Imaging Last Impressions IVC Filter Placement X-Ray 05/24/16 0000 Signed Impressions: Service Date/Time: Tuesday, May 24, 2016 15:24 - CONCLUSION: Uncomplicated inferior vena cava filter placement as above. Santino Ospina MD Chest X-Ray 05/24/16 0000 Signed Impressions: Service Date/Time: Tuesday, May 24, 2016 10:05 - CONCLUSION: Poor inspiratory chest with mild basilar atelectasis especially on the left. No evidence of acute congestion or consolidating airspace disease. Santino Ospina MD Head CT 05/23/16 1519 Signed Impressions: Service Date/Time: Monday, May 23, 2016 15:33 - CONCLUSION: 1. Small left subdural hemorrhage. 2. Atrophy and remote lacunar infarcts. Gil Kaur MD CT Angiography 05/23/16 1111 Signed Impressions: Service Date/Time: Monday, May 23, 2016 13:04 - CONCLUSION: 1. Bilateral pulmonary emboli are noted. 2. Atelectasis, interstitial lung disease and patchy airspace disease at the bases. 3. Mild dilatation of the ascending aorta up to 4.2 cm. Gil Kaur MD Lower Extremity Ultrasound 05/23/16 0000 Signed Impressions: Service Date/Time: Monday, May 23, 2016 22:05 - CONCLUSION: No DVT in either lower extremity. John Wagner MD PE at Discharge GENERAL: Well-developed well-nourished. NAD. SKIN: Warm and dry. No lesions noted. HEENT: Normocephalic. Pupils equal and round. Mucous membranes pink and moist. CARDIOVASCULAR: Regular rate and rhythm. No murmur appreciated. RESPIRATORY: No accessory muscle use. Clear to auscultation. Breath sounds equal bilaterally. GASTROINTESTINAL: Abdomen soft, non-tender, nondistended. Bowel sounds x4. MUSCULOSKELETAL: No obvious deformities. No clubbing or cyanosis. No edema. No calf swelling or TTP. NEUROLOGICAL: Awake and alert. No focal neurological deficits. Moves upper and lower extremities spontaneously. Normal speech. PSYCHIATRIC: Appropriate mood and affect; insight and judgment normal. Pt update on day of discharge Patient is currently doing well. No acute concerns. PT recommended SNF but patient and want to go home and continue their home health. Hospital Course Mr. Lamar is an 80-year-old with a history of CAD with history of CABG with triple bypass, atrial fibrillation, COPD, DM, HTN, hypercholesteremia, prostate cancer with radiation, GERD, degenerative disc disease and arthritis who presents with sharp nonradiating right anterior chest pain. Bilateral PE: CT angiography results reviewed, bilateral pulmonary emboli are noted. Atelectasis, interstitial lung disease and patchy airspace disease at the bases. Mild dilation of the ascending aorta up to 4.2cm. Hematology consulted and has seen patient, report reviewed. S/p IVC Filter 05/24. Pain control with oral [place] as needed, with IV Morphine for breakthrough. - SDH occurred in January 2016. - Based on literature review (uptodate), restarting anti-coagulation 7 to 14 days after ICH appears to be reasonable. - Newer agents (Dabigatran, Rivaroxaban, apixaban) would be preferable due to lower risk of ICH. - Discussed with neurosurgery and hematology on 05/23/2016, appreciate input. Will continue cautious anticoagulation. - S/p permanent IVC filter placement by IR 05/24. - Discussed with Dr. Lopez about plan for anticoagulation. Discontinue Heparin gtt tonight at 2000 and at same time start [id number] BID for 7 days, then 5 mg BID thereon. - Discussed at length regarding Apixaban 10mg BID for 6 more days then 5mg BID. Subdural hemorrhage: CT head results reviewed, small left subdural hemorrhage noted. Atrophy and remote lacunar infarcts. Neurosurgery consulted. I also reviewed reports of previous CT head done at [place], [place]. CT head reports from February 2016 indicates stable SDH. Although we cannot compare images, CT head done on 05/23/2016 likely indicates residual old SDH and not a new SDH. Hypertension - Continue Amlodipine 10mg daily. - Discussed with patient and regarding blood pressure. Due to PEDRITO, no lisinopril for now. However, in future Lisinopril can be used if PCP decides to do so. - Continue Lasix at home. This will help with BP as well. CAD: With chest pain above, likely related to PE. Cardiac enzymes less than 0.02. Continue metoprolol and statin. Atrial fibrillation - [id number] score likely greater than 6 (age, HTN, DM, TIA hx). HAS-BLED score is 2. - This would be another indication to start anti-coagulation and benefit outweigh the risk of anticoagulation. - We discussed at length regarding anti-coagulation again on the day of discharge. - Acute kidney injury - Mild hyperkalemia - K+ 5.0 on 05/24/2016. - Creatinine 1.60 --> 1.31 - possibly due to use of Lisinopril. - Will not continue lisinopril on discharge. Patient is advised to resume Lasix. - BMP next week at the PCP's office, preferably early next week. Diabetes mellitus - Discontinued metformin. Can be restarted when renal function (creatine) is back to baseline and if it is < 1.5. - Start Glimepiride 1mg Qday. - Close follow up with PCP to adjust diabetic medications. Generalized weakness: Continue home health PT. Pt Condition on Discharge: Good Discharge Disposition: Disch w/ Home Health Serv Discharge Time: > 30 minutes Discharge Instructions DIET: Follow Instructions for: Heart Healthy Diet Activities you can perform: Regular-No Restrictions Follow up Referrals: PCP Follow-up - 3-5 Days SNF/NURSING HOME/HH New Orders: BASIC METABOLIC PROF - 3-5 Days New Medications: Glimepiride (Glimepiride) 1 Mg Tab 1 MG PO DAILY Take with breakfast or first main meal Blood Sugar Management #30 Ref 0 TAB Amlodipine (Norvasc) 10 Mg Tab 10 MG PO DAILY Blood Pressure Management #30 TAB Apixaban (Eliquis) 5 Mg Tab 10 MG PO BID Blood Clot Prevention #12 TAB Apixaban (Eliquis) 5 Mg Tab 5 MG PO BID START After finishing Apixaban 10mg twice a day Prescription. Blood Clot Prevention #60 TAB Continued Medications: Albuterol Neb (Albuterol Neb) 2.5 Mg/3 Ml Neb 2.5 MG NEB Q4HR NEB PRN SHORTNESS OF BREATH #60 Ref 0 NEBULE Aspirin (Aspirin) 81 Mg Chew 81 MG CHEW DAILY Ref 0 TAB Atorvastatin (Atorvastatin) 40 Mg Tab 40 MG PO HS Cholesterol Management #30 Ref 0 TAB Budesonide-Formoterol Inh (Symbicort Inh) 160-4.5 Mcg/Act Aero 1 PUFF INH Q12HR #1 Ref 0 INHALER Cholecalciferol (Vitamin D-3) 1,000 Unit Tab 1000 UNITS PO DAILY #30 Ref 0 TAB Citalopram (Citalopram) 40 Mg Tab 40 MG PO DAILY Control Depression #30 Ref 0 TAB Cyanocobalamin (Vitamin B-12) 1,000 Mcg Tab 1000 MCG PO DAILY Nutritional Supplement #1 Ref 0 BOTTLE Docusate Sodium (Dulcolax Stool Softener) 100 Mg Cap 100 MG PO BID Prevent Constipation #60 Ref 0 CAP Furosemide (Furosemide) 20 Mg Tab 20 MG PO BID #60 Ref 0 TAB Metoprolol Tartrate (Metoprolol Tartrate) 50 Mg Tab 50 MG PO BID #60 Ref 0 TAB Omeprazole (Omeprazole) 20 Mg Tab 20 MG PO DAILY #30 Ref 0 TAB Tramadol (Tramadol) 50 Mg Tab 50 MG PO Q4H PRN PAIN Ref 0 TAB Discontinued Medications: Metformin (Metformin) 500 Mg Tab 500 MG PO BIDPC With meals Blood Sugar Management #60 Ref 0 TAB Quincy Velazquez DO May 26, 2016 12:52
--- NOTE | 2016-05-26 12:53 | HHI.FF ---
Face to Face Verification Diagnosis: (1) Atrial fibrillation (2) Pulmonary embolism (3) HTN (hypertension) (4) DM (diabetes mellitus) (5) History of subdural hematoma Physical Therapy Order: Evaluate and Treat, Improve ambulation, Strength and gait training Home Health Nursing Order: Signs/symptoms of disease process Diabetic education Oxygen administration education Medication education-adverse effect Nursing assessment with vital signs I have seen patient Mushtaq Lamar on 05/26/16. My clinical findings support the need for the requested home health care services because: Ltd mobility - disease progression Patient has SOB Deconditioned w/ increased weakness Limited ability to care for self Need for psychosocial assistance Impaired cognition/judgement High risk of falls Infection w/ risk of complications I certify that my clinical findings support that this patient is homebound because: Impaired cognitive ability/safety Unsteady gait/balance Unsafe to leave home unassisted Unable to use public transportation Quincy Velazquez DO May 26, 2016 12:53 pm
[2016-06-01] MEDS ORDERED: APIXABAN 5 MG TABLET PO SCH (20:00)
== END 2016-05-26 16:13 | disposition home health service (06) | DRG 167 ==
LOC: NEPC 10:20 → NEDA 15:08 → N04B 16:47
PROVIDERS: ADMIT Hospitalist; ATTEND Hospitalist
PROC: 06H03DZ Insertion of Intraluminal Device into Inferior Vena Cava, Percutaneous Approach (ICD-10-PCS; principal; 2016-05-24)
DX: I26.99 Other pulmonary embolism without acute cor pulmonale (principal); N17.9 Acute kidney failure, unspecified; J44.9 Chronic obstructive pulmonary disease, unspecified; I48.91 Unspecified atrial fibrillation; Z79.82 Long term (current) use of aspirin; Z95.1 Presence of aortocoronary bypass graft; I25.10 Atherosclerotic heart disease of native coronary artery without angina pectoris; E11.9 Type 2 diabetes mellitus without complications; Z79.84 Long term (current) use of oral hypoglycemic drugs; Z86.79 Personal history of other diseases of the circulatory system; I10 Essential (primary) hypertension; E78.00 Pure hypercholesterolemia, unspecified; Z85.46 Personal history of malignant neoplasm of prostate; Z92.3 Personal history of irradiation; K21.9 Gastro-esophageal reflux disease without esophagitis; M51.36 Other intervertebral disc degeneration, lumbar region; M19.90 Unspecified osteoarthritis, unspecified site; Z91.81 History of falling
CPT/HCPCS: 37191; 70450; 71010; 71275; 80048; 80053; 82272; 82550; 82948; 83880; 84484; 85025; 85027; 85610; 85730; 93005; 93970; 94640; 94664; C1769; C1880; J1644; J1815; J2270; J2920; J3010; J7030; Q9967